=== PATIENT | male | born 1950 | race African-American/Black ===

== ENCOUNTER 2017-06-13 11:06 | Emergency (ER) | payer OTHER ==
[2017-06-13] MEDS ORDERED: oxyCODONE HCL 5 MG TABLET PO ONE (11:39)
--- NOTE | 2017-06-13 11:46 | PDOC ---
History of Present Illness - History of Present Illness Initial Comments: 06/13/17 12:24 The patient is a 67 year old male with a significant PMH of colon cancer, GI bleed, sickle cell trait, anemia, heart murmur, HLD, s/p RLE angiogram with SFA stent placement on 05/29/2017, sent in by Dr. Fernandez to the emergency department for evaluation of gangrenous right fourth toe. The patient states the fourth toe pain and necrosis is worsening over the past few weeks and is making it difficult for him to sleep at night. 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 The patient has no other complaints at this time. The patient denies chest pain, shortness of breath, headache and dizziness. Denies fever, chills, nausea, vomit, diarrhea and constipation. Denies dysuria, frequency, urgency and hematuria. Allergies: NKA Past surgical history: Left above the knee amputation. Social history: Current every day smoker (4 cigarettes per day). Alcohol use. No reported drug use. PCP: Dr. Fernandez Vascular surgeon: Dr. Guzman <Shelia Christianson - Last Filed: 06/13/17 13:23> - General History Source: Patient, Old Records Exam Limitations: No Limitations <Armand Schaefer - Last Filed: 06/13/17 18:35> - General Chief Complaint: Wound Stated Complaint: RT TOE WOUND (PCP SENT) Time Seen by Provider: 06/13/17 11:25 Past History <Shelia Christianson - Last Filed: 06/13/17 13:23> - Past Medical History Anemia: No Asthma: No Cancer: Yes (COLON WITH RESECTION AND CHEMO) Cardiac Disorders: Yes (BORN WITH HEART MURMUR) CVA: No COPD: No CHF: No Dementia: No Diabetes: No GI Disorders: No Disorders: No HTN: No Hypercholesterolemia: No Liver Disease: No Seizures: No Thyroid Disease: No - Surgical History Abdominal Surgery: Yes (COLON RESECTION) Orthopedic Surgery: (AMPUTATION (LEFT AKA)) - Suicide/Smoking/Psychosocial Hx Smoking Status: Yes Smoking History: Current some day smoker Have you smoked in the past 12 months: Yes Number of Cigarettes Smoked Daily: 3 Information on smoking cessation initiated: Yes 'Breaking Loose' booklet given: 05/23/17 Hx Alcohol Use: No Drug/Substance Use Hx: No Substance Use Type: None Hx Substance Use Treatment: No <Armand Schaefer - Last Filed: 06/13/17 18:35> - Past Medical History Allergies/Adverse Reactions: Allergies Allergy/AdvReac Type Severity Reaction Status Date / Time No Known Allergies Allergy Verified 06/13/17 11:10 Home Medications: Ambulatory Orders Albuterol Sulfate [Proair Hfa -] 1 puff IH Q4H PRN 04/25/15 Folic Acid 1 mg PO DAILY 05/23/17 Tramadol HCl 50 mg PO PRN PRN 05/23/17 Clopidogrel Bisulfate [Plavix] 75 mg PO DAILY #30 tablet 05/29/17 Oxycodone HCl/Acetaminophen [Percocet 5-325 mg Tablet] 1 tab PO Q6H PRN #20 tablet MDD 4 06/13/17 Review of Systems - Review of Systems Able to Perform ROS?: Yes Comments:: 06/13/17 12:08 GENERAL/CONSTITUTIONAL: No fever or chills. No weakness. HEAD, EYES, EARS, NOSE AND THROAT: No change in vision. No ear pain or discharge. No sore throat. CARDIOVASCULAR: No chest pain or shortness of breath. RESPIRATORY: No cough, wheezing, or hemoptysis. GASTROINTESTINAL: No nausea, vomiting, diarrhea or constipation. GENITOURINARY: No dysuria, frequency, or change in urination. MUSCULOSKELETAL: (+) Pain in the right 4th toe. No neck or back pain. SKIN: No rash NEUROLOGIC: No headache, vertigo, loss of consciousness, or change in strength/ sensation. ENDOCRINE: No increased thirst. No abnormal weight change. HEMATOLOGIC/LYMPHATIC: No anemia, easy bleeding, or history of blood clots. ALLERGIC/IMMUNOLOGIC: No hives or skin allergy. <Shelia Christianson - Last Filed: 06/13/17 13:23> *Physical Exam - Vital Signs Last Vital Signs Temp Pulse Resp BP Pulse Ox 97.4 F L 74 20 124/79 99 06/13/17 11:10 06/13/17 11:10 06/13/17 11:10 06/13/17 11:10 06/13/17 11:10 - Physical Exam Comments: 06/13/17 12:03 GENERAL: Awake, alert, and fully oriented, in no acute distress HEAD: No signs of trauma EYES: PERRLA, EOMI, sclera anicteric, conjunctiva clear ENT: Auricles normal inspection, hearing grossly normal, nares patent, oropharynx clear without exudates. Moist mucosa NECK: Normal ROM, supple, no lymphadenopathy, JVD, or masses LUNGS: Breath sounds equal, clear to auscultation bilaterally. No wheezes, and no crackles HEART: Regular rate and rhythm, normal S1 and S2, no murmurs, rubs or gallops ABDOMEN: Soft, nontender, normoactive bowel sounds. No guarding, no rebound. No masses EXTREMITIES: (+) Left AKA. (+) Right 4th toe necrotic. (+) Sensation intact in RLE. (+) Barely palpation DP pulse. Normal range of motion, no edema. No clubbing or cyanosis. No cords, erythema, or tenderness NEUROLOGICAL: Cranial nerves II through XII grossly intact. Normal speech. SKIN: Warm, Dry, normal turgor, no rashes or lesions noted. <Shelia Christianson - Last Filed: 06/13/17 13:23> - Vital Signs Last Vital Signs Temp Pulse Resp BP Pulse Ox 97.4 F L 74 20 124/79 99 06/13/17 11:10 06/13/17 11:10 06/13/17 11:10 06/13/17 11:10 06/13/17 11:10 <Armand Schaefer - Last Filed: 06/13/17 18:35> Heart Score/ECG Review #1 ECG reviewed & interpreted by me at: 12:50 06/13/17 16:05 NSR 68, LVH, Q wave V1-V2, TWI I, avL, V5-V6, j point elevation V4, no std/richard, QTC 435 msec <Armand Schaefer - Last Filed: 06/13/17 18:35> ED Treatment Course - LABORATORY CBC & Chemistry Diagram: 06/13/17 12:15 06/13/17 12:15 <Shelia Christianson - Last Filed: 06/13/17 13:23> - LABORATORY CBC & Chemistry Diagram: 06/13/17 12:15 06/13/17 12:15 <Armand Schaefer - Last Filed: 06/13/17 18:35> Medical Decision Making - Medical Decision Making 06/13/17 13:[address] Guzman. <Shelia Christianson - Last Filed: 06/13/17 13:23> - Medical Decision Making 06/13/17 11:51 A portion of this note was documented by scribe services under my direction. I have reviewed the details of the note, within reason, and agree with the documentation with the following case summary and management plan written by me. Patient treated in the ED. Nursing notes are reviewed and incorporated into the medical decision-making. Vital signs reviewed. Peripheral IV access obtained by the nurse, laboratory studies are drawn and sent, reviewed and interpreted by myself. Vital Signs Temp Pulse Resp BP Pulse Ox 97.4 F L 74 20 124/79 99 06/13/17 11:10 06/13/17 11:10 06/13/17 11:10 06/13/17 11:10 06/13/17 11:10 67 year old male with past medical history of colon cancer, GI bleed, hypercholesterolemia, sickle trait, anemia, status post right lower extremity angiogram with SFA stent placement on 05/29/2017 sent in by primary care physician Dr. Fernandez for gangrenous right fourth toe. As of note, in April 22, the patient has had a complicated course with the left lower extremity that resulted in a left AKA. This time, patient has started developing several weeks of pain in the right fourth toe. Noted that he was having increasing pain and necrosis of the right fourth toe. However, the pain is worsening and the patient of visit the PMD. Patient's primary care physician has sent the patient here to the ED. Patient's vascular surgeon is Dr. Gilbert Gzuman. Consult Dr. Guzman. We'll need to rule out vasculitis. There is evidence of necrosis right or toe. We'll obtain blood cultures and labs and urinalysis and a right foot x-ray and admit the patient to the hospital. 06/13/17 16:16 CBC, BMP 06/13/17 12:15 06/13/17 12:15 CMP Sodium 141 mmol/L (136-145) 06/13/17 12:15 Potassium 5.0 mmol/L (3.5-5.1) 06/13/17 12:15 Chloride 110 mmol/L (98-107) H 06/13/17 12:15 Carbon Dioxide 25 mmol/L (21-32) 06/13/17 12:15 Anion Gap 6 (8-16) L 06/13/17 12:15 BUN 14 mg/dL (7-18) D 06/13/17 12:15 Creatinine 0.9 mg/dL (0.7-1.3) D 06/13/17 12:15 Creat Clearance w eGFR > 60 (>60) 06/13/17 12:15 Random Glucose 93 mg/dL (74-106) D 06/13/17 12:15 Calcium 9.0 mg/dL (8.5-10.1) 06/13/17 12:15 Phosphorus 3.4 mg/dL (2.5-4.9) 06/13/17 12:15 Magnesium 2.0 mg/dL (1.8-2.4) D 06/13/17 12:15 Total Bilirubin 0.5 mg/dL (0.2-1.0) D 06/13/17 12:15 AST 38 U/L (15-37) H D 06/13/17 12:15 ALT 21 U/L (12-78) 06/13/17 12:15 Alkaline Phosphatase 109 U/L (45-117) 06/13/17 12:15 C-Reactive Protein 0.4 MG/DL (0.00-0.3) H 06/13/17 12:15 Total Protein 7.5 g/dl (6.4-8.2) 06/13/17 12:15 Albumin 3.9 g/dl (3.4-5.0) 06/13/17 12:15 06/13/17 18:30 CT scan reviewed. Demonstrates findings with difficult to assess for patent vessels. Case was discussed with Dr. Gilbert Guzman. Patient was seen by Dr. Guzman. He had performed dopplers and noted flow to the DP. Patient otherwise with no acute infection at this time. Patient prefers to follow up as an outpatient, to which Dr. Guzman is agreeable with the plan. Case was discussed with DR. Fernandez, who agrees to the plan with Dr. Guzman. I discussed the physical exam findings, ancillary test results and final diagnoses with the patient. I answered all of the patient's questions. The patient was satisfied with the care received and felt comfortable with the discharge plan and treatment plan. The patient will call their primary care physician within 24 hours to arrange follow-up and will return to the Emergency Department with any new, persistant or worsening symptoms. <Armand Schaefer - Last Filed: 06/13/17 18:35> *DC/Admit/Observation/Transfer - Attestations Scribe Attestion: 06/13/17 12:07 Documentation prepared by Shelia Christianson, acting as medical sales consultant for Armand Schaefer MD. <Shelia Christianson - Last Filed: 06/13/17 13:23> <Armand Schaefer - Last Filed: 06/13/17 18:35> Diagnosis at time of Disposition: Foot pain Qualifiers: Laterality: right Qualified Code(s): M79.671 - Pain in right foot - Discharge Dispostion Disposition: HOME Condition at time of disposition: Stable - Prescriptions Prescriptions: Oxycodone HCl/Acetaminophen [Percocet 5-325 mg Tablet] 1 tab PO Q6H PRN #20 tablet MDD 4 PRN Reason: Severe Pain - Referrals Referrals: Ishan Fernandez [Primary Care Provider] - Gilbert Guzman MD [Staff Physician] - - Patient Instructions Printed Discharge Instructions: DI for Foot Pain Additional Instructions: Please take a tablet of percocet every 6 hours as needed for pain. Follow up with Dr. Hunt on Friday. - Post Discharge Activity
[2017-06-13] MEDS ORDERED: oxyCODONE HCL 5 MG TABLET ONE (12:19)
[2017-06-13 12:31] LABS: BASO % 0.8 % (0-2.0); EOS % 3.6 % (0-4.5); HEMATOCRIT 30.1 % (35.4-49); LYMPH % 13.3 % (8-40); MCH 33.9 pg (25.7-33.7); MCHC 33.4 g/dl (32.0-35.9); MEAN CELL VOLUME 101.7 fl (80-96); MEAN PLT VOLUME 8.4 fl (7.5-11.1); MONO % 5.2 % (3.8-10.2); NEUT % 77.1 % (42.8-82.8); PLATELET COUNT 292 K/MM3 (134-434); RBC 2.96 M/mm3 (4.00-5.60); RDW 15.6 % (11.9-15.9); WHITE BLOOD COUNT 6.3 K/mm3 (4.0-10.0)
[2017-06-13 13:03] LABS: ALBUMIN 3.9 g/dl (3.4-5.0); ALK PHOS 109 U/L (45-117); ANION GAP 6 (8-16); BILIRUBIN,TOTAL 0.5 mg/dL (0.2-1.0); BLOOD UREA NITROGEN 14 mg/dL (7-18); CHLORIDE 110 mmol/L (98-107); CO2 25 mmol/L (21-32); CREATININE 0.9 mg/dL (0.7-1.3); GLUCOSE,RANDOM 93 mg/dL (74-106); PHOSPHOROUS 3.4 mg/dL (2.5-4.9); SGPT/ALT 21 U/L (12-78); SODIUM 141 mmol/L (136-145); TOT PROT 7.5 g/dl (6.4-8.2)
[2017-06-13 13:08] LABS: INR 0.93 (0.82-1.09); PROTHROMBIN TIME (PATIENT) 10.5 SEC (9.98-11.88)
[2017-06-13 13:11] LABS: ACTIVATED PTT 33.7 SECONDS (26.9-34.4)
[2017-06-13] MEDS ORDERED: morphine CARPU-JECT 4 MG/1 ML DISP.SYRIN IVPUSH ONE (13:21)
[2017-06-13] MEDS ORDERED: MORPHINE SULFATE 10 MG/1 ML *VIAL ONE (13:24)
[2017-06-13 13:45] LABS: SGOT/AST 38 U/L (15-37)
[2017-06-13 14:19] LABS: ERYTHROCYTE SEDIMENTATION RATE > 140 mm/hr (0-20)
--- NOTE | 2017-06-13 18:32 | PN ---
Progress Note (short form) - Note Progress Note: Vascular surgery Pt seen and examined. Complains of right 4th and 5th toe pain. Pt has good dopplerable DP and PT pulses. CTA reviewed. STents look open. Will come to office on for US Pain meds Gilbert lizama DO
[2017-06-13 18:55] VITALS: BP 141/93; PULSE 70; TEMP 97.8
--- NOTE | 2017-06-17 11:45 | EKG ---
Test Reason : Blood Pressure : / mmHG Vent. Rate : 068 BPM Atrial Rate : 068 BPM P-R Int : 146 ms QRS Dur : 086 ms QT Int : 410 ms P-R-T Axes : 040 -10 -50 degrees QTc Int : 435 ms SINUS RHYTHM WITH PREMATURE ATRIAL COMPLEXES MINIMAL VOLTAGE CRITERIA FOR LVH, MAY BE NORMAL VARIANT SEPTAL INFARCT (CITED ON OR BEFORE 20-APR-2015) T WAVE ABNORMALITY, CONSIDER LATERAL ISCHEMIA ABNORMAL ECG WHEN COMPARED WITH ECG OF 20-APR-2015 17:31, QUESTIONABLE CHANGE IN INITIAL FORCES OF ANTEROSEPTAL LEADS NONSPECIFIC T WAVE ABNORMALITY NOW EVIDENT IN INFERIOR LEADS T WAVE INVERSION NOW EVIDENT IN LATERAL LEADS Confirmed by MD Joe, Frederick ([id number]) on 06/17/2017 11:44:21 AM Referred By: Confirmed By:Frederick Diaz MD
== END 2017-06-13 18:57 | disposition home or self-care (01) ==
LOC: JER 11:06
PROC: 3E033NZ Introduction of Analgesics, Hypnotics, Sedatives into Peripheral Vein, Percutaneous Approach (ICD-10-PCS; principal; 2017-06-13)
DX: M79.671 Pain in right foot (principal); D57.1 Sickle-cell disease without crisis; R01.1 Cardiac murmur, unspecified
CPT/HCPCS: 36415; 71045-TC-FY; 73630-TC-RT-FY; 75635-TC; 80053; 83735; 84100; 85025; 85610; 85651; 85730; 86140; 87040; 93005; 93010; 96374; 99284-25

== ENCOUNTER 2017-07-17 14:04 | Day surgery (SDC) | payer OTHER ==
[2017-07-16 11:14] VITALS: BMI 18.3
[2017-07-17] MEDS ORDERED: MIDAZOLAM HCL 2 MG/2 ML SINGLE DOSE VIAL ONE (16:48)
[2017-07-17] MEDS ORDERED: PROPOFOL 20 ML ONE (16:48)
--- NOTE | 2017-07-17 16:48 | HP ---
Admitting History and Physical - Admission Chief Complaint: right 4th toe gangrene . Here for amputation today Limitations to Obtaining History: No Limitations - Past Medical History Cardiovascular: Yes: Hyperlipdemia. No: AFIB, Aneurysm, Aortic Insufficiency, Aortic Stenosis, CAD, CHF, Deep Vein Thrombosis, HTN, [place], Mitral Insufficiency, Mitral Stenosis, Murmur, Pulmonary Hypertension, Other Gastrointestinal: Yes: Cancer (colon), GI Bleed. No: Ascites, Constipation, Crohn's Disease, Diverticulitis, Diverticulosis, Esophageal Varices, Gastritis, GERD, Hemorrhoids, Hiatal Hernia, Inflamatory Bowel Disease, Irritable Bowel Disease, Pancreatitis, Peptic Ulcer Disease, Ulcerative Colitis, Other Heme/Onc: Yes: Cancer (colon), Sickle Cell Trait. 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 [Santyl] 1 applic TP DAILY #1 oint...g. 06/18/17 Family Disease History - Family Disease History Family Disease History: Other: Father (Sickle Cell Trait) Review of Systems - Review of Systems Constitutional: reports: No Symptoms Eyes: reports: No Symptoms HENT: reports: No Symptoms Neck: reports: No Symptoms Cardiovascular: reports: No Symptoms Respiratory: reports: No Symptoms Gastrointestinal: reports: No Symptoms Genitourinary: reports: No Symptoms Breasts: reports: No Symptoms Reported Musculoskeletal: reports: No Symptoms Integumentary: reports: No Symptoms Neurological: reports: No Symptoms Endocrine: reports: No Symptoms Hematology/Lymphatic: reports: No Symptoms Psychiatric: reports: No Symptoms Physical Examination Vital Signs: Vital Signs Temperature 97.6 F 07/17/17 15:01 Pulse Rate 72 07/17/17 15:01 Respiratory Rate 16 07/17/17 15:01 Blood Pressure 113/65 07/17/17 15:01 O2 Sat by Pulse Oximetry (%) 94 L 07/17/17 15:01 Constitutional: Yes: Well Nourished, No Distress, Calm Eyes: Yes: WNL, Conjunctiva Clear, EOM Intact HENT: Yes: WNL, Atraumatic, Normocephalic Neck: Yes: WNL, Supple, Trachea Midline Cardiovascular: Yes: WNL, Regular Rate and Rhythm Respiratory: Yes: WNL, Regular, CTA Bilaterally Gastrointestinal: Yes: WNL, Normal Bowel Sounds Musculoskeletal: Yes: WNL Extremities: Yes: WNL, Other (gangrene right 4th toe) Edema: No Peripheral Pulses WNL: Yes Integumentary: Yes: WNL Neurological: Yes: WNL, Alert, Oriented ...Motor Strength: WNL Psychiatric: Yes: WNL Problem List - Problems (1) Foot pain Code(s): M79.673 - PAIN IN UNSPECIFIED FOOT (2) Gangrene of toe Code(s): I96 - GANGRENE, NOT ELSEWHERE CLASSIFIED (3) Peripheral arterial disease Code(s): I73.9 - PERIPHERAL VASCULAR DISEASE, UNSPECIFIED (4) S/P AKA (above knee amputation) unilateral Code(s): Z89.619 - ACQUIRED ABSENCE OF UNSPECIFIED LEG ABOVE KNEE (5) Smoker Code(s): F17.200 - NICOTINE DEPENDENCE, UNSPECIFIED, UNCOMPLICATED Assessment/Plan Gangrene right 4th toe 1. For amputation today
[2017-07-17] MEDS ORDERED: ceFAZolin SODIUM 1 GM VIAL IVPB ONE (17:10)
[2017-07-17] MEDS ORDERED: LIDOCAINE HCL 1%, 10 MG/ML (20ML VIAL) ONE (17:11)
[2017-07-17] MEDS ORDERED: ceFAZolin SODIUM 1 GM VIAL ONE (17:14)
[2017-07-17] MEDS ORDERED: LIDOCAINE HCL 1%, 10 MG/ML (50 mL VIAL) IJ ONE (17:15)
[2017-07-17] MEDS ORDERED: BACITRACIN 15 GM TUBE TOPICAL OINTMENT ONE (17:36)
--- NOTE | 2017-07-17 17:45 | OP ---
Operative Note - Note: Operative Date: 07/17/17 Pre-Operative Diagnosis: right 4th toe gangrene Operation: right 4th toe partial amputation Post-Operative Diagnosis: Same as Pre-op Anesthesia: Fractional Estimated Blood Loss (mls): 25 Operative Report Dictated: Yes
[2017-07-17] MEDS ORDERED: PROMETHAZINE HCL 25 MG/1 ML VIAL IVPB PRN (17:49)
[2017-07-17] MEDS ORDERED: ONDANSETRON 4 MG/2 ML VIAL IVPUSH PRN (17:49)
[2017-07-17] MEDS ORDERED: SODIUM CHLORIDE 1,000 ML IV SCH (18:00)
[2017-07-17] MEDS ORDERED: LABETALOL HCL 5 MG/1 ML (100MG/20 ML VIAL) ONE (18:23)
[2017-07-17] MEDS ORDERED: LABETALOL HCL 5 MG/1 ML (100MG/20 ML VIAL) IVPUSH ONE (18:30)
[2017-07-17 18:40] VITALS: TEMP 97.5
[2017-07-17 20:54] VITALS: BP 147/80; PULSE 70
--- NOTE | 2017-07-18 01:52 | OP ---
DATE OF OPERATION: 07/17/2017 PREOPERATIVE DIAGNOSIS: Right fourth toe gangrene. POSTOPERATIVE DIAGNOSIS: Right fourth toe gangrene. PROCEDURE: Right fourth toe partial amputation. SURGEON: Gilbert Guaman DO ANESTHESIA: Fractional. BLOOD LOSS: 20 mL. DESCRIPTION OF PROCEDURE: The patient is a 67-year-old male with right fourth toe gangrene for about 3 months now. He was revascularized by having a stent placed 2 months ago. He has good Dopplerable DP and PT pulses. It was thought that he would need a partial toe amputation. He came in to Ambulatory Surgery today. Patient was consented for the procedure, understanding all risks, benefits, alternatives, and was then taken to the operating room. Once in the operating room, he was placed on the operating table in the supine manner. The right foot and leg were prepped and draped in the sterile surgical manner. We then injected 15 mL of lidocaine 1% around the fourth toe to create a block. We then went ahead and used a number 15-blade and removed the gangrenous portion of the toe and we were able to remove the tendons attached to the distal portion of the toe as well. We then went ahead and used a rongeur and excavated the toe and took out all of the bone and the bone was sent to pathology. Once the bone was taken out, the rest of the toe was viable and we were able to close the wound using 4-0 silk in a simple manner and 3 simple stitches were placed. The wound was then well irrigated. Bacitracin was placed. Xeroform, 4 x 4's, and Kerlix were placed. The patient tolerated the procedure well with no complications. Patient was transferred to the PACU in stable condition. GILBERT GUAMAN DO SELF PAY COLLECTOR/[id number]
--- NOTE | 2017-07-21 14:05 | PATH ---
Surgical Pathology Report Patient Name: MISSY FERNANDEZ [facility]. Rec. #: [id number] /Age/Gender: 1950 (Age: 67) / M Account: [id number] Location: [facility] SURGICAL Taken: 07/18/2017 Received: 07/18/2017 Reported: 07/21/2017 Physicians: Gilbert Guzman Specimen(s) Received RIGHT 4TH TOE/BONE Clinical History Right fourth toe gangrene Final Diagnosis BONE AND SOFT TISSUE, RIGHT FOURTH TOE, PARTIAL AMPUTATION: BONE WITH REACTIVE CHANGES, AND SOFT TISSUE WITH GANGRENOUS NECROSIS. Electronically Signed Ishan Burris M.D. Gross Description Received in formalin labeled "right fourth toe/bone" is an irregular white-mahoney focally gangrenous portion of soft tissue measuring 2 x 1.5 x 1 cm. Also received in same container are multiple white-mahoney fragments of bone measuring 1.5 x 1 x 0.4 cm in aggregate. Tugboat Captain sections are submitted in 2 cassettes as follows: 1-gangrenous tissue; 2-bone fragments after decalcification. PRIMITIVO/07/18/2017 marshall/07/18/2017
== END 2017-07-17 19:45 | disposition home or self-care (01) ==
LOC: JASU-SURG 14:04
PROVIDERS: ATTEND Surgery Vascular Surgery
PROC: 0Y6V0Z0 Detachment at Right 4th Toe, Complete, Open Approach (ICD-10-PCS; principal; 2017-07-17 16:30)
DX: I96 Gangrene, not elsewhere classified (principal)
CPT/HCPCS: 88304-TC; 88311-TC; 94760

== ENCOUNTER 2017-07-31 07:37 | Day surgery (SDC) | payer OTHER ==
[2017-07-30 09:30] VITALS: BMI 19.1
--- NOTE | 2017-07-31 08:56 | HP ---
Admitting History and Physical - Admission Chief Complaint: right 4th toe gangrene. Here for amputation today. Limitations to Obtaining History: No Limitations - Past Medical History Cardiovascular: Yes: Hyperlipdemia. No: AFIB, Aneurysm, Aortic Insufficiency, Aortic Stenosis, CAD, CHF, Deep Vein Thrombosis, HTN, [place], Mitral Insufficiency, Mitral Stenosis, Murmur, Pulmonary Hypertension, Other Gastrointestinal: Yes: Cancer (colon), GI Bleed. No: Ascites, Constipation, Crohn's Disease, Diverticulitis, Diverticulosis, Esophageal Varices, Gastritis, GERD, Hemorrhoids, Hiatal Hernia, Inflamatory Bowel Disease, Irritable Bowel Disease, Pancreatitis, Peptic Ulcer Disease, Ulcerative Colitis, Other Heme/Onc: Yes: Cancer (colon), Sickle Cell Trait. 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 [Santyl] 1 applic TP DAILY #1 oint...g. 06/18/17 Albuterol 0.083% Nebulizer Ni [Ventolin 0.083% Nebulizer Soln -] 1 amp NEB PRN 07/30/17 Family Disease History - Family Disease History Family Disease History: Other: Father (Sickle Cell Trait) Review of Systems - Review of Systems Constitutional: reports: No Symptoms Eyes: reports: No Symptoms HENT: reports: No Symptoms Neck: reports: No Symptoms Cardiovascular: reports: No Symptoms Respiratory: reports: No Symptoms Gastrointestinal: reports: No Symptoms Genitourinary: reports: No Symptoms Breasts: reports: No Symptoms Reported Musculoskeletal: reports: No Symptoms Physical Examination Vital Signs: Vital Signs Temperature 98.2 F 07/31/17 08:21 Pulse Rate 74 07/31/17 08:21 Respiratory Rate 18 07/31/17 08:21 Blood Pressure 125/66 07/31/17 08:21 O2 Sat by Pulse Oximetry (%) 100 07/31/17 08:18 Constitutional: Yes: Well Nourished, No Distress, Calm Eyes: Yes: WNL, Conjunctiva Clear, EOM Intact HENT: Yes: WNL, Atraumatic, Normocephalic Neck: Yes: WNL, Supple, Trachea Midline Cardiovascular: Yes: WNL, Regular Rate and Rhythm Respiratory: Yes: WNL, Regular, CTA Bilaterally Gastrointestinal: Yes: WNL, Normal Bowel Sounds Musculoskeletal: Yes: WNL Extremities: Yes: WNL, Other (right 4th toe gangrene) Edema: No Peripheral Pulses WNL: Yes Integumentary: Yes: WNL Neurological: Yes: WNL, Alert, Oriented ...Motor Strength: WNL Psychiatric: Yes: WNL Problem List - Problems (1) Gangrene of toe Code(s): I96 - GANGRENE, NOT ELSEWHERE CLASSIFIED (2) S/P AKA (above knee amputation) unilateral Code(s): Z89.619 - ACQUIRED ABSENCE OF UNSPECIFIED LEG ABOVE KNEE Assessment/Plan right 4th toe gangrene 1. For amputation of toe today
[2017-07-31] MEDS ORDERED: PROMETHAZINE HCL 25 MG/1 ML VIAL IVPUSH PRN (09:08)
[2017-07-31] MEDS ORDERED: oxyCODONE HCL 5 MG TABLET PO PRN (09:08)
[2017-07-31] MEDS ORDERED: ONDANSETRON 4 MG/2 ML VIAL IVPUSH PRN (09:08)
[2017-07-31] MEDS ORDERED: LACTATED RINGERS SOLUTION 1,000 ML IV SCH (09:15)
[2017-07-31] MEDS ORDERED: MIDAZOLAM HCL 2 MG/2 ML SINGLE DOSE VIAL ONE ×2 (09:19)
[2017-07-31] MEDS ORDERED: PROPOFOL 20 ML ONE (09:31)
[2017-07-31] MEDS ORDERED: LIDOCAINE HCL 1%, 10 MG/ML (20ML VIAL) INF ONE ×2 (09:32)
[2017-07-31] MEDS ORDERED: BACITRACIN 15 GM TUBE TOPICAL OINTMENT ONE (09:55)
--- NOTE | 2017-07-31 10:09 | OP ---
Operative Note - Note: Operative Date: 07/31/17 Pre-Operative Diagnosis: right 4th toe gangrene Operation: right 4th toe amputation Post-Operative Diagnosis: Same as Pre-op Surgeon: Gilbert Guzman Anesthesia: Fractional Estimated Blood Loss (mls): 5 Operative Report Dictated: Yes
--- NOTE | 2017-07-31 10:45 | OP ---
DATE OF OPERATION: 07/31/2017 PREOPERATIVE DIAGNOSIS: Right 4th toe gangrene. POSTOPERATIVE DIAGNOSIS: Right 4th toe gangrene. PROCEDURE: Right 4th toe amputation. SURGEON: Gilbert Guaman DO ANESTHESIA: Fractional. BLOOD LOSS: 5 mL The patient is a 67-year-old male with right 4th toe gangrene. He came in to Ambulatory Surgery for an amputation. Patient was consented for the procedure, understanding all risks, benefits, and alternatives and was then taken to the operating room. Once in the operating room, he was laid on the operating table in supine manner, and the area of the right leg and foot was prepped and draped in a sterile surgical manner. We then went ahead and injected 15 mL of lidocaine 1% around the 4th toe. We then went ahead and used a number 15 blade and made an elliptical incision around the toe. Bovie electrocautery used to control hemostasis. We then used a bone cutter, and the toe was sent to Pathology. We then used a rongeur and took the remaining part of the toe all the way back down to the metatarsal head. The wound was then well irrigated. We then used 3-0 silk, and 4 simple stitches were placed to approximate the wound. Bacitracin was placed. Xeroform was placed, 4 x 4's, Kerlix, and Alvaro bandage was placed. The patient tolerated the procedure with no complication. Patient transferred to the PACU in stable condition. GILBERT GUAMAN DO SALESPERSON [employer]/[id number]
[2017-07-31 11:07] VITALS: PULSE 73
[2017-07-31 11:12] VITALS: BP 132/76; TEMP 97.3
--- NOTE | 2017-08-04 14:46 | PATH ---
Surgical Pathology Report Patient Name: MISSY FERNANDEZ [facility]. Rec. #: [id number] /Age/Gender: 1950 (Age: 67) / M Account: [id number] Location: U SURGICAL Taken: 07/31/2017 Received: 07/31/2017 Reported: 08/04/2017 Physicians: Gilbert Guzman Specimen(s) Received AMPUTATION OF RIGHT 4TH TOE Clinical History Gangrene of right fourth toe Final Diagnosis RIGHT FOURTH TOE, AMPUTATION: ULCERATION WITH GANGRENOUS NECROSIS AND ACUTE OSTEOMYELITIS. Comment: Due to the fragmented nature of the specimen, a definite margin cannot be determined. Electronically Signed Ishan Burris M.D. Gross Description Received in formalin labelled "amputation right toe fourth" is an approximately 3 x 1.5 x 1.2 cm aggregate of portions of skin and mahoney-freedman tissue, along with fragments of possible bony material. The largest piece measures 1.5 cm in greatest dimension. This piece shows an area of apparent ulceration. Sections from the apparent margin are submitted 1. Sections from the area of ulceration are submitted in cassette 2. Possible bony tissue fragments are submitted in cassette 3 for light decalcification. [facility]/08/01/2017 [facility]/08/01/2017
== END 2017-07-31 12:00 | disposition home or self-care (01) ==
LOC: JASU-SURG 07:37
PROVIDERS: ATTEND Surgery Vascular Surgery
PROC: 0Y6V0Z3 Detachment at Right 4th Toe, Low, Open Approach (ICD-10-PCS; principal; 2017-07-31 09:00)
DX: I73.9 Peripheral vascular disease, unspecified (principal); M86.171 Other acute osteomyelitis, right ankle and foot
CPT/HCPCS: 88305-TC; 88311-TC

== ENCOUNTER 2017-08-26 10:33 | Inpatient (IN) | payer OTHER ==
--- NOTE | 2017-08-26 11:06 | PDOC ---
*Physical Exam - Vital Signs Last Vital Signs Temp Pulse Resp BP Pulse Ox 98.6 F 90 18 112/58 100 08/26/17 10:38 08/26/17 10:38 08/26/17 10:38 08/26/17 10:38 08/26/17 10:38 Medical Decision Making - Medical Decision Making 08/26/17 11:05 Pt seen by the Advanced Practice Provider under my direct supervision Ancillary studies reviewed I agree with plan as outlined by the Advanced Practice Provider ANIA Jones
--- NOTE | 2017-08-26 11:08 | PDOC ---
History of Present Illness - General Chief Complaint: Wound Stated Complaint: WOUND Time Seen by Provider: 08/26/17 10:46 History Source: Patient Exam Limitations: No Limitations - History of Present Illness Initial Comments: 08/26/17 13:45 Patient is a 67-year-old male past medical history of vascular disease, who presents emergency department today from wound care. Patient states that the base of his right fourth toe is infected and he has pain to the surrounding foot. He states he has had pain to the foot for three weeks. The fourth toe is amputated. Denies fevers, chills, shortness of breath, difficulty breathing, chest pain, palpitations, nausea, vomiting, diarrhea, frequency, urgency and hematuria. Past History - Travel Traveled outside of the country in the last 30 days: No Close contact w/someone who was outside of country & ill: No - Past Medical History Allergies/Adverse Reactions: Allergies Allergy/AdvReac Type Severity Reaction Status Date / Time No Known Allergies Allergy Verified 08/26/17 10:37 Home Medications: Ambulatory Orders Albuterol Sulfate [Proair Hfa -] 1 puff IH Q4H PRN 04/25/15 Folic Acid 1 mg PO DAILY 05/23/17 Tramadol HCl 50 mg PO PRN PRN 05/23/17 Clopidogrel Bisulfate [Plavix] 75 mg PO DAILY #30 tablet 05/29/17 Collagenase Clostridium Hist. [Santyl] 1 applic TP DAILY #1 oint...g. 06/18/17 Albuterol 0.083% Nebulizer Ni [Ventolin 0.083% Nebulizer Soln -] 1 amp NEB PRN 07/30/17 Becaplermin [Regranex] 15 gm TP DAILY #1 gel..gram. 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) CVA: No COPD: No CHF: No Dementia: No Diabetes: No GI Disorders: No Disorders: No HTN: No Hypercholesterolemia: No Liver Disease: No Seizures: No Thyroid Disease: No Other medical history: PVD - Surgical History Abdominal Surgery: Yes (COLON RESECTION) Orthopedic Surgery: (AMPUTATION (LEFT AKA)) - Suicide/Smoking/Psychosocial Hx Smoking Status: Yes Smoking History: Current some day smoker Have you smoked in the past 12 months: Yes Number of Cigarettes Smoked Daily: 3 Information on smoking cessation initiated: Yes 'Breaking Loose' booklet given: 08/26/17 Hx Alcohol Use: No Drug/Substance Use Hx: No Substance Use Type: None Hx Substance Use Treatment: No Review of Systems - Review of Systems Able to Perform ROS?: Yes Comments:: 08/26/17 16:49 CONSTITUTIONAL: Absent: fever, chills, diaphoresis, generalized weakness, malaise, loss of appetite HEENT: Absent: rhinorrhea, nasal congestion, throat pain, throat swelling, difficulty swallowing, mouth swelling, ear pain, eye pain, visual Changes CARDIOVASCULAR: Absent: chest pain, loss of consciousness, palpitations, irregular heart rate, peripheral edema RESPIRATORY: Absent: cough, shortness of breath, dyspnea with exertion, orthopnea, wheezing, stridor, hemoptysis GASTROINTESTINAL: Absent: abdominal pain, abdominal distension, nausea, vomiting, diarrhea, constipation, melena, hematochezia GENITOURINARY: Absent: dysuria, frequency, urgency, hesitancy, hematuria, flank pain, genital pain MUSCULOSKELETAL: Absent: myalgia, arthralgia, joint swelling SKIN: Present: Rash to R foot with infected toe Absent: rash, itching, pallor HEMATOLOGIC/IMMUNOLOGIC: Absent: easy bleeding, easy bruising, lymphadenopathy, frequent infections ENDOCRINE: Absent: unexplained weight gain, unexplained weight loss, heat intolerance, cold intolerance NEUROLOGIC: Absent: headache, focal weakness or paresthesias, dizziness, unsteady gait, seizure, mental status changes, bladder or bowel incontinence PSYCHIATRIC: Absent: anxiety, depression, suicidal or homicidal ideation, hallucinations. Is the patient limited British proficient: No *Physical Exam - Vital Signs Last Vital Signs Temp Pulse Resp BP Pulse Ox 98.6 F 90 18 112/58 100 08/26/17 10:38 08/26/17 10:38 08/26/17 10:38 08/26/17 10:38 08/26/17 10:38 - Physical Exam Comments: 08/26/17 16:49 GENERAL: Well developed, well nourished. Awake and alert. No acute distress. HEENT: Normocephalic, atraumatic. PERRLA, EOMI. No conjunctival pallor. Sclera are non- icteric. Moist mucous membranes. Oropharynx is clear. NECK: Supple. Full ROM. No JVD. Carotid pulses 2+ and symmetric, without bruits. No thyromegaly. No lymphadenopathy. CARDIOVASCULAR: Regular rate and rhythm. No murmurs, rubs, or gallops. Distal pulses are 2+ and symmetric. PULMONARY: No evidence of respiratory distress. Lungs clear to auscultation bilaterally. No wheezing, rales or rhonchi. ABDOMINAL: Soft. Non-tender. Non-distended. No rebound or guarding. No organomegaly. Normoactive bowel sounds. MUSCULOSKELETAL Normal range of motion at all joints. No bony deformities or tenderness. No CVA tenderness. EXTREMITIES: L AKA. R lower extremity with amputated 4th toe. No cyanosis. No clubbing. No edema. No calf tenderness. SKIN: 4th r toe with stage 3 pressure ulcer, purulent drainage. Surrounding cellulitis to the ventral R foot. Warm and dry. Normal capillary refill. No rashes. No jaundice. NEUROLOGICAL: Alert, awake, appropriate. Cranial nerves 2-12 intact. No deficits to light touch and temperature in face, upper extremities and lower extremities. No motor deficits in the in face, upper extremities and lower extremities. Normoreflexic in the upper and lower extremities. Normal speech. Toes are down- going bilaterally. Gait is normal without ataxia. PSYCHIATRIC: Cooperative. Good eye contact. Appropriate mood and affect. ED Treatment Course - LABORATORY CBC & Chemistry Diagram: 08/26/17 12:36 08/26/17 14:16 Medical Decision Making - Medical Decision Making 08/26/17 15:54 Patient is a 67-year-old male with past medical history of vascular disease, who presents emergency department for a infected right foot. The base of the fourth right toe is with purulent drainage and stage III pressure ulcer. Surrounding cellulitis to the base of the toes. Will need IV antibiotics at this time. No leukocytosis at this time. Electrolytes within normal limits. Blood cultures drawn. Patient given vancomycin and Zosyn. Spoke with Dr. Mills to discuss the case. Accepts admission to [facility]. Dr. Guzman for vascular consult. 08/26/17 19:06 Foot x-ray with soft tissue swelling but no air or signs of osteomyitis. EKG: RAte 86 BPM, normal intervals normal, normal axis. No acute ST-T wave changes at this time. CXR: No acute findings. *DC/Admit/Observation/Transfer Diagnosis at time of Disposition: Cellulitis of right foot, Wound infection - Discharge Dispostion Condition at time of disposition: Stable Decision to Admit order: Yes - Referrals - Patient Instructions - Post Discharge Activity
[2017-08-26 13:12] LABS: BASO % 0.7 % (0-2.0); EOS % 0.6 % (0-4.5); HEMATOCRIT 26.4 % (35.4-49); LYMPH % 10.4 % (8-40); MCH 33.8 pg (25.7-33.7); MCHC 34.2 g/dl (32.0-35.9); MEAN CELL VOLUME 98.8 fl (80-96); MEAN PLT VOLUME 9.9 fl (7.5-11.1); MONO % 6.9 % (3.8-10.2); NEUT % 81.4 % (42.8-82.8); PLATELET COUNT 242 K/MM3 (134-434); RBC 2.68 M/mm3 (4.00-5.60); RDW 15.2 % (11.9-15.9); WHITE BLOOD COUNT 7.9 K/mm3 (4.0-10.0)
[2017-08-26] MEDS ORDERED: VANCOMYCIN 1,000 MG in DEXTROSE 5%-WATER - 250 ML IVPB ONE (13:31)
[2017-08-26] MEDS ORDERED: PIPERACILLIN/TAZOB 3.375 GM 3.375 GM in DEXTROSE 5%-WATER - 50 ML IVPB ONE (13:32)
[2017-08-26 13:40] LABS: ALBUMIN 3.7 g/dl (3.4-5.0); ALK PHOS 97 U/L (45-117); ANION GAP 5 (8-16); BLOOD UREA NITROGEN 16 mg/dL (7-18); CHLORIDE 108 mmol/L (98-107); CO2 26 mmol/L (21-32); GLUCOSE,RANDOM 87 mg/dL (74-106); SGPT/ALT 33 U/L (12-78); SODIUM 139 mmol/L (136-145); TOT PROT 7.6 g/dl (6.4-8.2)
[2017-08-26] MEDS ORDERED: VANCOMYCIN 1 GRAM (PRE-DOCKED) 1,000 MG/250 ML BAG IVPB ONE (14:10)
[2017-08-26] MEDS ORDERED: PIPERACILLIN/TAZOB 3.375 GM 3.375 GM/50 ML BAG IVPB ONE (14:11)
[2017-08-26 14:12] LABS: POTASSIUM 5.7 mmol/L (3.5-5.1); SGOT/AST 74 U/L (15-37)
[2017-08-26 14:51] LABS: ALBUMIN 3.7 g/dl (3.4-5.0); ANION GAP 7 (8-16); BILIRUBIN,TOTAL 0.8 mg/dL (0.2-1.0); BLOOD UREA NITROGEN 16 mg/dL (7-18); CHLORIDE 111 mmol/L (98-107); CO2 24 mmol/L (21-32); CREATININE 0.9 mg/dL (0.7-1.3); GLUCOSE,RANDOM 83 mg/dL (74-106); POTASSIUM 4.3 mmol/L (3.5-5.1); SGOT/AST 32 U/L (15-37); SGPT/ALT 26 U/L (12-78); SODIUM 142 mmol/L (136-145)
[2017-08-26 14:52] LABS: ALK PHOS 97 U/L (45-117)
--- NOTE | 2017-08-26 16:35 | HP ---
Admitting History and Physical - Primary Care Physician PCP: Ambrosio Mills - Admission Chief Complaint: SENT FROM WOUND CARE History of Present Illness: Patient is a 67-year-old male past medical history of vascular disease, who presents emergency department today from wound care. Patient states that the base of his right fourth toe is infected and he has pain to the surrounding foot. He states he has had pain to the foot for three weeks. The fourth toe is amputated. Denies fevers, chills, shortness of breath, difficulty breathing, chest pain, palpitations, nausea, vomiting, diarrhea, frequency, urgency and hematuria. History Source: Medical Record - Past Medical History Cardiovascular: Yes: Hyperlipdemia. No: AFIB, Aneurysm, Aortic Insufficiency, Aortic Stenosis, CAD, CHF, Deep Vein Thrombosis, HTN, [place], Mitral Insufficiency, Mitral Stenosis, Murmur, Pulmonary Hypertension, Other Gastrointestinal: Yes: Cancer (colon), GI Bleed. No: Ascites, Constipation, Crohn's Disease, Diverticulitis, Diverticulosis, Esophageal Varices, Gastritis, GERD, Hemorrhoids, Hiatal Hernia, Inflamatory Bowel Disease, Irritable Bowel Disease, Pancreatitis, Peptic Ulcer Disease, Ulcerative Colitis, Other Heme/Onc: Yes: Cancer (colon), Sickle Cell Trait. 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 [Santyl] 1 applic TP DAILY #1 oint...g. 06/18/17 Albuterol 0.083% Nebulizer Ni [Ventolin 0.083% Nebulizer Soln -] 1 amp NEB PRN 07/30/17 Becaplermin [Regranex] 15 gm TP DAILY #1 gel..gram. 08/22/17 Oxycodone HCl/Acetaminophen [Percocet 10-325 mg Tablet] 1 each PO QID #120 tablet MDD 4 08/22/17 Family Disease History - Family Disease History Family Disease History: Other: Father (Sickle Cell Trait) Review of Systems - Review of Systems Constitutional: reports: Fever Eyes: reports: No Symptoms HENT: reports: No Symptoms Neck: reports: No Symptoms Cardiovascular: reports: No Symptoms Respiratory: reports: No Symptoms Gastrointestinal: reports: No Symptoms Genitourinary: reports: No Symptoms Musculoskeletal: reports: Other Integumentary: reports: Wound (RIGHT 4TH DIGIT) Neurological: reports: Pre-Existing Deficit Endocrine: reports: No Symptoms Hematology/Lymphatic: reports: No Symptoms Psychiatric: reports: No Symptoms Physical Examination Vital Signs: Vital Signs Temperature 98.6 F 08/26/17 10:38 Pulse Rate 90 08/26/17 10:38 Respiratory Rate 18 08/26/17 10:38 Blood Pressure 112/58 08/26/17 10:38 O2 Sat by Pulse Oximetry (%) 100 08/26/17 10:38 Constitutional: Yes: Mild Distress Eyes: Yes: WNL HENT: Yes: WNL Neck: Yes: WNL Cardiovascular: Yes: WNL Respiratory: Yes: WNL Gastrointestinal: Yes: WNL Renal/: Yes: WNL Musculoskeletal: Yes: WNL Extremities: Yes: Other Edema: No Peripheral Pulses WNL: Yes Integumentary: Yes: Pressure Ulcer, Venous Stasis Changes Wound/Incision: Yes: Dressing Dry and Intact, Excoriated (RIGHT 4TH DIGIT LOWER LEG) Neurological: Yes: Pre-Existing Deficit ...Motor Strength: RLE Psychiatric: Yes: WNL Labs: CBC, BMP 08/26/17 12:36 08/26/17 14:16 Problem List - Problems (1) Cellulitis of right foot Code(s): L03.115 - CELLULITIS OF RIGHT LOWER LIMB (2) Wound infection Code(s): T14.8XXA - OTHER INJURY OF UNSPECIFIED BODY REGION, INITIAL ENCOUNTER; L08.9 - LOCAL INFECTION OF THE SKIN AND SUBCUTANEOUS TISSUE, UNSP (3) Anemia Code(s): D64.9 - ANEMIA, UNSPECIFIED Qualifiers: Anemia type: unspecified type Qualified Code(s): D64.9 - Anemia, unspecified (4) Foot pain Code(s): M79.673 - PAIN IN UNSPECIFIED FOOT (5) Gangrene of toe Code(s): I96 - GANGRENE, NOT ELSEWHERE CLASSIFIED (6) History of colon cancer Code(s): Z85.038 - PERSONAL HISTORY OF MALIGNANT NEOPLASM OF LARGE INTESTINE (7) Hypercholesteremia Code(s): E78.0 - PURE HYPERCHOLESTEROLEMIA * DO NOT USE * (8) Peripheral arterial disease Code(s): I73.9 - PERIPHERAL VASCULAR DISEASE, UNSPECIFIED (9) S/P AKA (above knee amputation) unilateral Code(s): Z89.619 - ACQUIRED ABSENCE OF UNSPECIFIED LEG ABOVE KNEE (10) Smoker Code(s): F17.200 - NICOTINE DEPENDENCE, UNSPECIFIED, UNCOMPLICATED Assessment/Plan VAS SX EVAL SENT FROM WOUND CARE FOR IV ABX ID CONSULT PREOP? WILL D/W DR ROWENA DAVIES SX LABS IV ABX
[2017-08-26] MEDS: oxyCODONE HCL 5 MG TABLET PO PRN (19:49)
[2017-08-26] MEDS: HEPARIN NA (PORCINE) 5,000 UNITS/ML 1ML VIAL SQ SCH (21:20)
[2017-08-26] MEDS: ACETAMINOPHEN 325 MG TABLET (FP) PO PRN (23:50)
[2017-08-27] MEDS: oxyCODONE HCL 5 MG TABLET PO PRN ×4 (01:30→20:27)
[2017-08-27] MEDS: ACETAMINOPHEN 325 MG TABLET (FP) PO PRN ×3 (06:01→20:28)
[2017-08-27] MEDS ORDERED: PIPERACILLIN/TAZOB 3.375 GM 3.375 GM in DEXTROSE 5%-WATER - 50 ML IVPB ONE (06:21)
[2017-08-27] MEDS ORDERED: PIPERACILLIN/TAZOBACTAM 3.375 GM VIAL IVPB ONE ×2 (06:34→15:53)
[2017-08-27] MEDS ORDERED: DEXTROSE 5%-WATER - 50 ML IVPB ONE ×2 (06:35→15:53)
--- NOTE | 2017-08-27 10:50 | PN ---
Teaching Attending Note Name of Resident: Willy Macedo ATTENDING PHYSICIAN STATEMENT I saw and evaluated the patient. I reviewed the resident's note and discussed the case with the resident. I agree with the resident's findings and plan as documented. SUBJECTIVE: smokes 4 cigarettes a day history per resident consultation recent amputation of right 4ourth toe 07/31 reports improvement in swelling and pain right foot today no fevers or chills denies DM OBJECTIVE: Vital Signs Period Temp Pulse Resp BP Sys/Torres Pulse Ox Last 24 Hr 98.4 F-98.9 F 18-102 18-95 107-144/51-78 99-100 cor-rrr lungs clear abd soft,nt ext +femoral pulse cannot palpate DP in right foot open ulcer at amputations site pain lateral and proximal to ulcer with swelling/erythema also some pain at sole of the foot at the same site CBC, BMP 08/26/17 12:36 08/26/17 14:16 Microbiology 08/26/17 12:36 Toe - Right Fourth Wound Culture - Preliminary Presumptive Mrsa (Pbp2a Pos) ASSESSMENT AND PLAN: wound infection r/o osteomyelitis esr/crp vanco/zosyn until cultures are finalized MRI smoking cessation surgical f/u Problem List - Problems (1) Wound infection Code(s): T14.8XXA - OTHER INJURY OF UNSPECIFIED BODY REGION, INITIAL ENCOUNTER; L08.9 - LOCAL INFECTION OF THE SKIN AND SUBCUTANEOUS TISSUE, UNSP (2) Osteomyelitis Code(s): M86.9 - OSTEOMYELITIS, UNSPECIFIED (3) Smoking Code(s): F17.200 - NICOTINE DEPENDENCE, UNSPECIFIED, UNCOMPLICATED
[2017-08-27] MEDS ORDERED: VANCOMYCIN 750 MG in DEXTROSE 5%-WATER - 150 ML IVPB SCH (10:51)
[2017-08-27] MEDS: HEPARIN NA (PORCINE) 5,000 UNITS/ML 1ML VIAL SQ SCH ×2 (11:00→21:02)
[2017-08-27 11:02] LABS: CHOLESTEROL 187 mg/dL (50-200); HDL CHOLESTEROL 54 mg/dL (40-60); LDL CHOLESTEROL (ONLY SJRH) 118 mg/dL (5-100); TRIGLYCERIDES 108 mg/dL (35-160)
--- NOTE | 2017-08-27 11:11 | CON.ID ---
Consult Consult Specialty:: Infectious Disease Referred by:: Dr. Mills Reason for Consultation:: Right foot infection - History of Present Illness Chief Complaint: right foot pain History of Present Illness: The patient is a 67 yo M, active smoker w/ PMH PVD who was sent from the wound care clinic for an infected foot ulcer. The patient had been complaining of erythema, swelling and pain of the right foot which got progressively worse over the past 3 weeks. Patient also endorses purulent drainage of the wound. The patient has had multiple surgeries on his foot, with a partial 4th toe amputation on 07/17, a complete 4th toe amputation on 07/31, both for Gangrene of the digit. Patient is also s/p AKA of left foot in 04/2015. Per the patient, he had received outpatient antibiotics for this right toe infection in the past. Patient denies fever, chills. - History Source History Provided By: Patient Limitations to Obtaining History: No Limitations - Past Medical History Cardio/Vascular: Yes: Hyperlipdemia. No: AFIB, Aneurysm, Aortic Insufficiency, Aortic Stenosis, CAD, CHF, Deep Vein Thrombosis, HTN, ID, Mitral Insufficiency, Mitral Stenosis, Murmur, Pulmonary Hypertension, Other Gastrointestinal: Yes: Cancer (colon), GI Bleed. 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 [Santyl] 1 applic TP DAILY #1 oint...g. 06/18/17 Albuterol 0.083% Nebulizer Ni [Ventolin 0.083% Nebulizer Soln -] 1 amp NEB PRN 07/30/17 Becaplermin [Regranex] 15 gm TP DAILY #1 gel..gram. 08/22/17 Oxycodone HCl/Acetaminophen [Percocet 10-325 mg Tablet] 1 each PO QID #120 tablet MDD 4 08/22/17 Family Disease History - Family Disease History Family Disease History: Other: Father (Sickle Cell Trait) Review of Systems - Review of Systems Constitutional: denies: Chills, Diaphoresis, Fever, Lethargy Cardiovascular: denies: Chest Pain, Palpitations, Shortness of Breath Respiratory: denies: Cough, Orthopnea, SOB Gastrointestinal: denies: Abdominal Pain, Constipation, Diarrhea Integumentary: reports: Erythema (erythema and swelling of the foot.), Wound ( open wound at the base of the amputated right 4th toe.) Physical Exam Vital Signs: Vital Signs Temperature 98.9 F 08/27/17 09:00 Pulse Rate 102 H 08/27/17 09:00 Respiratory Rate 20 08/27/17 09:00 Blood Pressure 107/51 08/27/17 09:00 O2 Sat by Pulse Oximetry (%) 100 08/26/17 20:30 Constitutional: Yes: Well Nourished, No Distress, Calm HENT: Yes: Atraumatic, Normocephalic Cardiovascular: Yes: Regular Rate and Rhythm, S1, S2. No: JVD, Gallop, Murmur, Rub Respiratory: Yes: Regular, CTA Bilaterally Gastrointestinal: Yes: Normal Bowel Sounds, Soft. No: Tenderness Extremities: Yes: Amputation (right 4th toe and left AKA), Erythema (erythema and swelling of the right foot, seen along the dorsum, extending around the lateral side of the foot and into the plantar aspect of the foot. Entire area is tender to palpation.) Neurological: Yes: Alert, Oriented Psychiatric: Yes: Alert, Oriented Labs: CBC, BMP 08/26/17 12:36 08/26/17 14:16 Imaging - Results Chest X-ray: Report Reviewed, Image Reviewed X-ray: Report Reviewed, Image Reviewed Assessment/Plan The patient is a 67 yo m w/ PMH PVD who is admitted for the treatment of an infected right foot ulcer. -The wound is opened and draining serosanguinous fluid -There is erythema and swelling along the dorsum, lateral and plantar aspects of the right foot -wound culture growing MRSA -With this patient's recurrent infection and Hx of outpatient ABX therapy, Osteomyelitis is a concern. -Will order Vancomycin 750mg BID and Zosyn 3.375mg q8h -will order ESR, CRP in am -will order MRI w/ laura r/o osteo and abscess -will follow -case d/w Dr. Sherman
--- NOTE | 2017-08-27 11:22 | PN ---
Progress Note, Physician Chief Complaint: Wound infection History of Present Illness: C/O PAIN RIGHT FOOT Patient Name: Eric Santamaria Date: 1950 Address: [facility] [place] [address] Sex: Male Rx Written Rx Dispensed Drug Quantity Days Supply Prescriber Name 08/22/2017 08/22/2017 oxycodone-acetaminophen 10-325 mg tab 120 30 Guzman, Gilbert S (DO) 04/28/2017 08/20/2017 tramadol hcl 50 mg tablet 60 30 Fernandez, Ishan TURCIOS 07/17/2017 07/18/2017 endocet 5-325 tablet 60 15 Guzman, Gilbert S (DO) 04/28/2017 07/16/2017 tramadol hcl 50 mg tablet 60 30 Fernandez, Ishan TURCIOS 04/28/2017 06/18/2017 tramadol hcl 50 mg tablet 60 30 Fernandez, Ishan TURCIOS 06/13/2017 06/14/2017 endocet 5-325 tablet 20 5 Armand Schaefer () 04/28/2017 04/28/2017 tramadol hcl 50 mg tablet 60 30 Fernandez, Ishan TURCIOS 12/30/2016 03/19/2017 tramadol hcl 50 mg tablet 21 7 Gerald, Alma Delia 12/30/2016 02/17/2017 tramadol hcl 50 mg tablet 21 7 Gerald, Alma Delia 12/30/2016 01/23/2017 tramadol hcl 50 mg tablet 21 7 Gerald, Alma Delia 12/30/2016 12/30/2016 tramadol hcl 50 mg tablet 21 7 Gerald, Alma Delia 08/22/2016 09/03/2016 endocet 5-325 tablet 120 30 Guzman, Gilbert S (DO) - Current Medication List Current Medications: Active Medications Acetaminophen (Tylenol -) 650 mg PO Q6H PRN PRN Reason: PAIN LEVEL 1-5 Last Admin: 08/27/17 06:01 Dose: 650 mg Heparin Sodium (Porcine) (Heparin -) 5,000 unit SQ BID NEHEMIAH Last Admin: 08/27/17 11:00 Dose: 5,000 unit Piperacillin Sod/Tazobactam (Sod 3.375 gm/ Dextrose) 50 mls @ 100 mls/hr IVPB Q8H NEHEMIAH PRN Reason: Protocol Vancomycin HCl 750 mg/ (Dextrose) 150 mls @ 150 mls/hr IVPB BID NEHEMIAH PRN Reason: Protocol Oxycodone HCl (Roxicodone -) 10 mg PO Q6H PRN PRN Reason: PAIN LEVEL 6-10 Last Admin: 08/27/17 07:43 Dose: 10 mg - Objective Vital Signs: Vital Signs Temperature 98.9 F 08/27/17 09:00 Pulse Rate 102 H 08/27/17 09:00 Respiratory Rate 20 08/27/17 09:00 Blood Pressure 107/51 08/27/17 09:00 O2 Sat by Pulse Oximetry (%) 98 08/27/17 09:00 Constitutional: Yes: No Distress, Calm, Cachectic Cardiovascular: Yes: Regular Rate and Rhythm Respiratory: Yes: Regular Gastrointestinal: Yes: Normal Bowel Sounds, Soft Musculoskeletal: Yes: Muscle Pain (right foot pain) Extremities: Yes: Amputation (left leg) Neurological: Yes: Alert, Oriented Psychiatric: Yes: Alert, Oriented Labs: CBC, BMP 08/26/17 12:36 08/26/17 14:16 Problem List - Problems (1) Cellulitis of right foot Assessment/Plan: -ID consult -IV abx -Pain management- HCS checked -add tramadol and gabapentin -labs today including ESR, CRP Code(s): L03.115 - CELLULITIS OF RIGHT LOWER LIMB (2) Peripheral arterial disease Code(s): I73.9 - PERIPHERAL VASCULAR DISEASE, UNSPECIFIED (3) CAD (coronary artery disease) Assessment/Plan: -statin Code(s): I25.10 - ATHSCL HEART DISEASE OF [place] CORONARY ARTERY W/O ANG PCTRS (4) Anemia Assessment/Plan: -check A1c, -iron profile, b12, folate, thyroid profile and stool OB -monitor trend with normal transfusion parameters Code(s): D64.9 - ANEMIA, UNSPECIFIED Qualifiers: Anemia type: unspecified type Qualified Code(s): D64.9 - Anemia, unspecified Assessment/Plan see problem list
[2017-08-27] MEDS ORDERED: VANCOMYCIN 750 MG in DEXTROSE 5%-WATER - 250 ML IVPB ONE (11:30)
[2017-08-27] MEDS: ZINC SULFATE 220 MG CAPSULE (FP) PO SCH ×2 (12:23→21:03)
[2017-08-27] MEDS: MULTIVITAMINS (DAILY MVI) TABLET (FP) PO SCH (12:23)
[2017-08-27] MEDS: traMADol HCL 50 MG TABLET PO PRN (12:23)
[2017-08-27 12:31] LABS: BASO % 0.5 % (0-2.0); EOS % 1.1 % (0-4.5); HEMATOCRIT 25.2 % (35.4-49); HEMOGLOBIN 8.6 GM/dL (11.7-16.9); LYMPH % 13.2 % (8-40); MCHC 34.3 g/dl (32.0-35.9); MEAN CELL VOLUME 99.2 fl (80-96); MEAN PLT VOLUME 8.8 fl (7.5-11.1); MONO % 7.4 % (3.8-10.2); NEUT % 77.8 % (42.8-82.8); PLATELET COUNT 184 K/MM3 (134-434); RBC 2.54 M/mm3 (4.00-5.60); RDW 14.9 % (11.9-15.9); WHITE BLOOD COUNT 7.1 K/mm3 (4.0-10.0)
--- NOTE | 2017-08-27 13:04 | EKG ---
Test Reason : Blood Pressure : / mmHG Vent. Rate : 086 BPM Atrial Rate : 086 BPM P-R Int : 136 ms QRS Dur : 080 ms QT Int : 362 ms P-R-T Axes : 071 -17 037 degrees QTc Int : 433 ms SINUS RHYTHM WITH PREMATURE ATRIAL COMPLEXES MODERATE VOLTAGE CRITERIA FOR LVH, MAY BE NORMAL VARIANT CANNOT RULE OUT SEPTAL INFARCT (CITED ON OR BEFORE 20-APR-2015) T WAVE ABNORMALITY, CONSIDER LATERAL ISCHEMIA ABNORMAL ECG WHEN COMPARED WITH ECG OF 13-JUN-2017 12:51, NO SIGNIFICANT CHANGE WAS FOUND Confirmed by QASIM HAGAN MD ([id number]) on 08/27/2017 1:04:39 PM Referred By: Confirmed By:QASIM HAGAN MD
[2017-08-27] MEDS: GABAPENTIN 300 MG CAPSULE (FP) PO SCH ×2 (14:16→21:02)
[2017-08-27 14:19] LABS: ERYTHROCYTE SEDIMENTATION RATE 96 mm/hr (0-20)
[2017-08-27 15:59] LABS: ALBUMIN 3.7 g/dl (3.4-5.0); ANION GAP 8 (8-16); BLOOD UREA NITROGEN 24 mg/dL (7-18); CHLORIDE 111 mmol/L (98-107); CO2 24 mmol/L (21-32); POTASSIUM 4.2 mmol/L (3.5-5.1); SODIUM 143 mmol/L (136-145)
[2017-08-27 16:03] LABS: ALK PHOS 97 U/L (45-117); BILIRUBIN,TOTAL 0.8 mg/dL (0.2-1.0); GLUCOSE,RANDOM 85 mg/dL (74-106); SGOT/AST 33 U/L (15-37); SGPT/ALT 28 U/L (12-78); TOT PROT 7.3 g/dl (6.4-8.2)
[2017-08-27] MEDS: PIPERACILLIN/TAZOB 3.375 GM 3.375 GM in DEXTROSE 5%-WATER - 50 ML IVPB SCH ×2 (16:10→20:52)
[2017-08-27] MEDS: AMINO ACIDS/PROTEIN HYDROLYS 30 ML LIQUID.PKT PO SCH (16:53)
--- NOTE | 2017-08-27 17:51 | PN ---
Progress Note (short form) - Note Progress Note: VAscular Surgery Pt seen and examined. Dressing changed. Pt with palpable Popliteal pulse, and dopplerable dp pulse. Pt recently had angiogram , angioplasty . Then toe amputation. Wound is not healing due to microvascular disease in foot. Pt does not have any bypassable disease. Can treat wound with antibiotics. Prob chronic osteo -- since pt has dry gangrene of that site prior. Gilbert Guzman DO
[2017-08-27] MEDS: ROSUVASTATIN CA 5 MG TABLET (FP) PO SCH (21:02)
[2017-08-27] MEDS: VANCOMYCIN 750 MG in DEXTROSE 5%-WATER - 250 ML IVPB SCH (23:32)
[2017-08-28] MEDS ORDERED: PIPERACILLIN/TAZOBACTAM 3.375 GM VIAL IVPB ONE ×3 (00:43→17:57)
[2017-08-28] MEDS ORDERED: DEXTROSE 5%-WATER - 50 ML IVPB ONE ×3 (00:43→17:57)
[2017-08-28] MEDS: traMADol HCL 50 MG TABLET PO PRN ×2 (01:00→21:18)
[2017-08-28] MEDS: PIPERACILLIN/TAZOB 3.375 GM 3.375 GM in DEXTROSE 5%-WATER - 50 ML IVPB SCH ×3 (01:00→18:11)
[2017-08-28] MEDS: oxyCODONE HCL 5 MG TABLET PO PRN ×4 (02:33→23:39)
[2017-08-28] MEDS: ACETAMINOPHEN 325 MG TABLET (FP) PO PRN ×3 (02:34→19:02)
[2017-08-28] MEDS: GABAPENTIN 300 MG CAPSULE (FP) PO SCH ×3 (05:41→21:19)
[2017-08-28] MEDS ORDERED: oxyCODONE HCL 5 MG TABLET PO ONE (07:00)
[2017-08-28 07:31] LABS: BASO % 0.7 % (0-2.0); EOS % 1.3 % (0-4.5); HEMATOCRIT 24.4 % (35.4-49); HEMOGLOBIN 8.3 GM/dL (11.7-16.9); LYMPH % 11.9 % (8-40); MCH 34.1 pg (25.7-33.7); MCHC 34.2 g/dl (32.0-35.9); MEAN CELL VOLUME 99.6 fl (80-96); MEAN PLT VOLUME 9.2 fl (7.5-11.1); MONO % 8.5 % (3.8-10.2); NEUT % 77.6 % (42.8-82.8); PLATELET COUNT 149 K/MM3 (134-434); RBC 2.45 M/mm3 (4.00-5.60); RDW 14.8 % (11.9-15.9); WHITE BLOOD COUNT 6.4 K/mm3 (4.0-10.0)
[2017-08-28 08:54] LABS: CHLORIDE 110 mmol/L (98-107); POTASSIUM 4.1 mmol/L (3.5-5.1); SODIUM 141 mmol/L (136-145)
[2017-08-28] MEDS ORDERED: PT OWN MED DRAWER 7, Y5N ONE (09:03)
[2017-08-28] MEDS: ZINC SULFATE 220 MG CAPSULE (FP) PO SCH ×2 (09:13→21:19)
[2017-08-28] MEDS: MULTIVITAMINS (DAILY MVI) TABLET (FP) PO SCH (09:13)
[2017-08-28] MEDS: AMINO ACIDS/PROTEIN HYDROLYS 30 ML LIQUID.PKT PO SCH ×2 (09:13→18:11)
[2017-08-28] MEDS: HEPARIN NA (PORCINE) 5,000 UNITS/ML 1ML VIAL SQ SCH ×2 (09:14→21:19)
[2017-08-28 09:15] LABS: ALBUMIN 3.1 g/dl (3.4-5.0); ALK PHOS 87 U/L (45-117); ANION GAP 9 (8-16); BILIRUBIN,TOTAL 1.2 mg/dL (0.2-1.0); BLOOD UREA NITROGEN 20 mg/dL (7-18); CALCIUM 8.7 mg/dL (8.5-10.1); CO2 22 mmol/L (21-32); GLUCOSE,RANDOM 80 mg/dL (74-106); SGOT/AST 29 U/L (15-37); SGPT/ALT 24 U/L (12-78); TOT PROT 6.5 g/dl (6.4-8.2)
--- NOTE | 2017-08-28 09:44 | PN ---
Progress Note, Physician History of Present Illness: Infectious Disease Follow up: Patient seen adn examined on bedside. On contact ISO for MRSA. Patient states swelling and pain is better today. Was unable to tolerate MRI yesterday 2/2 to pain. - Current Medication List Current Medications: Active Medications Acetaminophen (Tylenol -) 650 mg PO Q6H PRN PRN Reason: PAIN LEVEL 1-5 Last Admin: 08/28/17 02:34 Dose: 650 mg Amino Acids (Prosource No Carb Liquid Pkt) 30 ml PO BID@0800,1730 [facility] Last Admin: 08/28/17 09:13 Dose: 30 ml Gabapentin (Neurontin -) 300 mg PO TID [facility] Last Admin: 08/28/17 05:41 Dose: 300 mg Heparin Sodium (Porcine) (Heparin -) 5,000 unit SQ BID [facility] Last Admin: 08/28/17 09:14 Dose: 5,000 unit Piperacillin Sod/Tazobactam (Sod 3.375 gm/ Dextrose) 50 mls @ 100 mls/hr IVPB Q8H-IV [facility] PRN Reason: Protocol Last Admin: 08/28/17 09:13 Dose: 100 mls/hr Vancomycin HCl 750 mg/ (Dextrose) 250 mls @ 250 mls/hr IVPB Q12H [facility] Last Admin: 08/27/17 23:32 Dose: 250 mls/hr Multivitamins/Minerals/Vitamin C (Tab-A-Vit -) 1 tab PO DAILY [facility] Last Admin: 08/28/17 09:13 Dose: 1 tab Oxycodone HCl (Roxicodone -) 10 mg PO Q6H PRN PRN Reason: PAIN LEVEL 6-10 Last Admin: 08/28/17 02:33 Dose: 10 mg Rosuvastatin Calcium (Crestor -) 5 mg PO HS [facility] Last Admin: 08/27/17 21:02 Dose: 5 mg Tramadol HCl (Ultram -) 50 mg PO Q8H PRN PRN Reason: PAIN LEVEL 4 - 6 Last Admin: 08/28/17 01:00 Dose: 50 mg Zinc Sulfate (Orazinc -) 220 mg PO BID [facility] Last Admin: 08/28/17 09:13 Dose: 220 mg - Objective Vital Signs: Vital Signs Temperature 98.4 F 08/28/17 06:00 Pulse Rate 92 H 08/28/17 06:00 Respiratory Rate 20 08/28/17 06:00 Blood Pressure 132/80 08/28/17 06:00 O2 Sat by Pulse Oximetry (%) 99 08/27/17 21:00 Constitutional: Yes: Well Nourished, No Distress, Calm HENT: Yes: Atraumatic, Normocephalic Cardiovascular: Yes: Regular Rate and Rhythm, S1, S2. No: JVD, Gallop, Murmur, Rub Respiratory: Yes: Regular, CTA Bilaterally Gastrointestinal: Yes: Normal Bowel Sounds, Soft Extremities: Yes: Other (foot seen unwrapped. wound at base of 4th toe more dry today. Swelling and erythema described yesterday is improved.) Neurological: Yes: Alert, Oriented Psychiatric: Yes: Alert, Oriented Labs: CBC, BMP 08/28/17 07:10 08/28/17 07:10 Assessment/Plan The patient is a 67 yo m w/ PMH PVD who is admitted for the treatment of an infected right foot ulcer. -erythema and swelling improved today -wound culture growing MRSA -c/w Vancomycin 750mg BID and Zosyn 3.375mg q8h -ESR 96, CRP 8.7 -f/u MRI w/ laura r/o osteo and abscess. Sedation/anxiolytic may aid in obtaining. -will follow -case d/w Dr. Sherman
[2017-08-28] MEDS: VANCOMYCIN 750 MG in DEXTROSE 5%-WATER - 250 ML IVPB SCH ×2 (11:47→23:40)
--- NOTE | 2017-08-28 13:51 | PN ---
Progress Note, Physician Chief Complaint: patient seen and examined complaining of pain in right foot no BM for 3 days - Current Medication List Current Medications: Active Medications Acetaminophen (Tylenol -) 650 mg PO Q6H PRN PRN Reason: PAIN LEVEL 1-5 Last Admin: 08/28/17 13:07 Dose: 650 mg Amino Acids (Prosource No Carb Liquid Pkt) 30 ml PO BID@0800,1730 [facility] Last Admin: 08/28/17 09:13 Dose: 30 ml Gabapentin (Neurontin -) 300 mg PO TID [facility] Last Admin: 08/28/17 13:09 Dose: 300 mg Heparin Sodium (Porcine) (Heparin -) 5,000 unit SQ BID [facility] Last Admin: 08/28/17 09:14 Dose: 5,000 unit Piperacillin Sod/Tazobactam (Sod 3.375 gm/ Dextrose) 50 mls @ 100 mls/hr IVPB Q8H-IV NE[facility] PRN Reason: Protocol Last Admin: 08/28/17 09:13 Dose: 100 mls/hr Vancomycin HCl 750 mg/ (Dextrose) 250 mls @ 250 mls/hr IVPB Q12H [facility] Last Admin: 08/28/17 11:47 Dose: 250 mls/hr Multivitamins/Minerals/Vitamin C (Tab-A-Vit -) 1 tab PO DAILY [facility] Last Admin: 08/28/17 09:13 Dose: 1 tab Oxycodone HCl (Roxicodone -) 10 mg PO Q6H PRN PRN Reason: PAIN LEVEL 6-10 Last Admin: 08/28/17 13:08 Dose: 10 mg Polyethylene Glycol (Miralax (For Daily Use) -) 17 gm PO BID [facility] Rosuvastatin Calcium (Crestor -) 5 mg PO HS [facility] Last Admin: 08/27/17 21:02 Dose: 5 mg Tramadol HCl (Ultram -) 50 mg PO Q8H PRN PRN Reason: PAIN LEVEL 4 - 6 Last Admin: 08/28/17 01:00 Dose: 50 mg Zinc Sulfate (Orazinc -) 220 mg PO BID [facility] Last Admin: 08/28/17 09:13 Dose: 220 mg - Objective Vital Signs: Vital Signs Temperature 97.9 F 08/28/17 09:00 Pulse Rate 82 08/28/17 09:00 Respiratory Rate 18 08/28/17 09:00 Blood Pressure 118/73 08/28/17 09:00 O2 Sat by Pulse Oximetry (%) 99 08/27/17 21:00 Constitutional: Yes: Calm Cardiovascular: Yes: Regular Rate and Rhythm, S1, S2 Respiratory: Yes: CTA Bilaterally Gastrointestinal: Yes: Normal Bowel Sounds, Soft Extremities: Yes: Other (left foot amputation) Edema: No Wound/Incision: Yes: Other (right foot 4 toe open wound) Neurological: Yes: Alert, Oriented Labs: CBC, BMP 08/28/17 07:10 08/28/17 07:10 Problem List - Problems (1) Wound infection Assessment/Plan: abx vanco and zosyn ID and vascular on board isolation for MRSA Microbiology 08/26/17 12:36 Toe - Right Fourth Gram Stain - Final 08/26/17 12:36 Toe - Right Fourth Wound Culture - Final Mr Sosa Aureus to go for MRI today dvt ppx Code(s): T14.8XXA - OTHER INJURY OF UNSPECIFIED BODY REGION, INITIAL ENCOUNTER; L08.9 - LOCAL INFECTION OF THE SKIN AND SUBCUTANEOUS TISSUE, UNSP (2) Foot pain Assessment/Plan: pain control and stool softners Code(s): M79.673 - PAIN IN UNSPECIFIED FOOT (3) Hypercholesteremia Assessment/Plan: crestor Code(s): E78.0 - PURE HYPERCHOLESTEROLEMIA * DO NOT USE *
[2017-08-28 14:12] LABS: CHOLESTEROL 187 mg/dL (50-200); LDL CHOLESTEROL (ONLY SJRH) 118 mg/dL (5-100); TRIGLYCERIDES 122 mg/dL (35-160)
[2017-08-28 14:19] LABS: HDL CHOLESTEROL 54 mg/dL (40-60)
--- NOTE | 2017-08-28 15:32 | PN ---
Teaching Attending Note Name of Resident: Willy Macedo ATTENDING PHYSICIAN STATEMENT I saw and evaluated the patient. I reviewed the resident's note and discussed the case with the resident. I agree with the resident's findings and plan as documented. SUBJECTIVE: OBJECTIVE: Vital Signs Period Temp Pulse Resp BP Sys/Torres Pulse Ox Last 24 Hr 97.3 F-98.4 F 82-109 16-20 104-158/58-80 99 foot unchanged Laboratory Tests 08/27/17 08/27/17 12:20 12:20 ESR 96 H C-Reactive Protein 8.7 H ASSESSMENT AND PLAN: suspect osteomyeliits- MRSA awiating MRI will need picc and shelter antibiotcs if MRI confirms osteo Problem List - Problems (1) Wound infection Code(s): T14.8XXA - OTHER INJURY OF UNSPECIFIED BODY REGION, INITIAL ENCOUNTER; L08.9 - LOCAL INFECTION OF THE SKIN AND SUBCUTANEOUS TISSUE, UNSP (2) Osteomyelitis Code(s): M86.9 - OSTEOMYELITIS, UNSPECIFIED (3) Smoking Code(s): F17.200 - NICOTINE DEPENDENCE, UNSPECIFIED, UNCOMPLICATED
[2017-08-28] MEDS ORDERED: INSULIN (NOVOLOG) ASPART 100 UNITS/ML 10ML VIAL ONE (17:57)
[2017-08-28] MEDS: COLLAGENASE CLOSTRIDIUM HIST. 30 GRAMS TUBE TP SCH (18:11)
[2017-08-28] MEDS ORDERED: LORazepam 0.5 MG TABLET PO ONE (19:15)
[2017-08-28] MEDS: POLYETHYLENE GLYCOL 3350 119 GM BTL PO SCH (21:19)
[2017-08-28] MEDS: ROSUVASTATIN CA 5 MG TABLET (FP) PO SCH (21:19)
[2017-08-29] MEDS ORDERED: PIPERACILLIN/TAZOBACTAM 3.375 GM VIAL IVPB ONE ×2 (01:33→09:20)
[2017-08-29] MEDS ORDERED: DEXTROSE 5%-WATER - 50 ML IVPB ONE ×2 (01:34→09:20)
[2017-08-29] MEDS: PIPERACILLIN/TAZOB 3.375 GM 3.375 GM in DEXTROSE 5%-WATER - 50 ML IVPB SCH ×2 (02:45→09:29)
[2017-08-29] MEDS: ACETAMINOPHEN 325 MG TABLET (FP) PO PRN ×2 (03:13→18:42)
[2017-08-29] MEDS: oxyCODONE HCL 5 MG TABLET PO PRN ×2 (03:36→12:04)
[2017-08-29] MEDS: GABAPENTIN 300 MG CAPSULE (FP) PO SCH ×3 (05:55→21:41)
[2017-08-29 07:45] LABS: BASO % 0.2 % (0-2.0); HEMATOCRIT 25.4 % (35.4-49); HEMOGLOBIN 8.6 GM/dL (11.7-16.9); LYMPH % 12.1 % (8-40); MCH 33.7 pg (25.7-33.7); MEAN CELL VOLUME 99.3 fl (80-96); MEAN PLT VOLUME 8.5 fl (7.5-11.1); MONO % 7.2 % (3.8-10.2); NEUT % 79.5 % (42.8-82.8); PLATELET COUNT 170 K/MM3 (134-434); RBC 2.56 M/mm3 (4.00-5.60); WHITE BLOOD COUNT 7.3 K/mm3 (4.0-10.0)
[2017-08-29 08:08] LABS: SERUM IRON SATURATION 11 % (15-55); TOTAL IRON BINDING CAPACITY 257 ug/dL (250-450); UIBC 228 ug/dL (111-343)
[2017-08-29 08:11] LABS: ALBUMIN 3.3 g/dl (3.4-5.0); ANION GAP 5 (8-16); BLOOD UREA NITROGEN 25 mg/dL (7-18); CALCIUM 8.8 mg/dL (8.5-10.1); CHLORIDE 110 mmol/L (98-107); CO2 26 mmol/L (21-32); GLUCOSE,RANDOM 89 mg/dL (74-106); POTASSIUM 3.8 mmol/L (3.5-5.1); SODIUM 141 mmol/L (136-145)
[2017-08-29 08:14] LABS: ALK PHOS 86 U/L (45-117); BILIRUBIN,TOTAL 0.6 mg/dL (0.2-1.0); SGOT/AST 26 U/L (15-37); SGPT/ALT 24 U/L (12-78); TOT PROT 6.8 g/dl (6.4-8.2)
[2017-08-29] MEDS: traMADol HCL 50 MG TABLET PO PRN ×2 (08:26→15:52)
[2017-08-29] MEDS: AMINO ACIDS/PROTEIN HYDROLYS 30 ML LIQUID.PKT PO SCH ×2 (08:27→16:54)
[2017-08-29 08:50] LABS: ERYTHROCYTE SEDIMENTATION RATE 86 mm/hr (0-20)
[2017-08-29] MEDS: ZINC SULFATE 220 MG CAPSULE (FP) PO SCH ×2 (09:27→21:41)
[2017-08-29] MEDS: MULTIVITAMINS (DAILY MVI) TABLET (FP) PO SCH (09:27)
[2017-08-29] MEDS: POLYETHYLENE GLYCOL 3350 119 GM BTL PO SCH ×2 (09:28→21:41)
[2017-08-29] MEDS: HEPARIN NA (PORCINE) 5,000 UNITS/ML 1ML VIAL SQ SCH ×2 (09:36→21:41)
[2017-08-29] MEDS: VANCOMYCIN 750 MG in DEXTROSE 5%-WATER - 250 ML IVPB SCH (11:06)
[2017-08-29] MEDS: COLLAGENASE CLOSTRIDIUM HIST. 30 GRAMS TUBE TP SCH (12:35)
--- NOTE | 2017-08-29 13:32 | PN ---
Progress Note, Physician History of Present Illness: Infectious Disease Follow up: Patient seen and examined on bedside. On contact ISO for MRSA. Patient states swelling and pain is better today. Patient unable to tolerate MRI again today 2/ 2 pain - Current Medication List Current Medications: Active Medications Acetaminophen (Tylenol -) 650 mg PO Q6H PRN PRN Reason: PAIN LEVEL 1-5 Last Admin: 08/29/17 03:13 Dose: 650 mg Amino Acids (Prosource No Carb Liquid Pkt) 30 ml PO BID@0800,1730 [facility] Last Admin: 08/29/17 08:27 Dose: 30 ml Collagenase (Santyl -) 1 applic TP DAILY [facility] Last Admin: 08/29/17 12:35 Dose: 1 applic Gabapentin (Neurontin -) 300 mg PO TID [facility] Last Admin: 08/29/17 05:55 Dose: 300 mg Heparin Sodium (Porcine) (Heparin -) 5,000 unit SQ BID [facility] Last Admin: 08/29/17 09:36 Dose: 5,000 unit Piperacillin Sod/Tazobactam (Sod 3.375 gm/ Dextrose) 50 mls @ 100 mls/hr IVPB Q8H-IV [facility] PRN Reason: Protocol Last Admin: 08/29/17 09:29 Dose: 100 mls/hr Vancomycin HCl 750 mg/ (Dextrose) 250 mls @ 250 mls/hr IVPB Q12H [facility] Last Admin: 08/29/17 11:06 Dose: 250 mls/hr Lorazepam (Ativan -) 1 mg PO ONCE ONE Stop: 08/28/17 19:16 Multivitamins/Minerals/Vitamin C (Tab-A-Vit -) 1 tab PO DAILY [facility] Last Admin: 08/29/17 09:27 Dose: 1 tab Oxycodone HCl (Roxicodone -) 10 mg PO Q4H PRN PRN Reason: PAIN LEVEL 6-10 Last Admin: 08/29/17 12:04 Dose: 10 mg Polyethylene Glycol (Miralax (For Daily Use) -) 17 gm PO BID [facility] Last Admin: 08/29/17 09:28 Dose: 17 gm Rosuvastatin Calcium (Crestor -) 5 mg PO HS [facility] Last Admin: 08/28/17 21:19 Dose: 5 mg Tramadol HCl (Ultram -) 50 mg PO Q8H PRN PRN Reason: PAIN LEVEL 4 - 6 Last Admin: 08/29/17 08:26 Dose: 50 mg Zinc Sulfate (Orazinc -) 220 mg PO BID [facility] Last Admin: 08/29/17 09:27 Dose: 220 mg - Objective Vital Signs: Vital Signs Temperature 97.6 F 08/29/17 10:00 Pulse Rate 72 08/29/17 10:00 Respiratory Rate 18 08/29/17 10:00 Blood Pressure 114/72 08/29/17 10:00 O2 Sat by Pulse Oximetry (%) 98 08/29/17 09:00 Constitutional: Yes: Well Nourished, No Distress, Calm Cardiovascular: Yes: Regular Rate and Rhythm, S1, S2. No: JVD, Gallop, Murmur, Rub Respiratory: Yes: Regular, CTA Bilaterally Gastrointestinal: Yes: Normal Bowel Sounds, Soft Extremities: Yes: Amputation (left), Other (erythema and swelling of the right foot is improved today.) Neurological: Yes: Alert, Oriented Psychiatric: Yes: Alert, Oriented Labs: CBC, BMP 08/29/17 07:30 08/29/17 07:30 Assessment/Plan The patient is a 67 yo m w/ PMH PVD who is admitted for the treatment of an infected right foot ulcer. -erythema and swelling improved today -wound culture growing MRSA -Vancomycin trough elevated today; will hold today's PM dose. will obtain random vanc in AM -c/w Zosyn 3.375mg q8h -f/u MRI r/o osteo and abscess. Sedation/anxiolytic may aid in obtaining. -will follow -case d/w Dr. Sherman
[2017-08-29] MEDS ORDERED: IRON SUCROSE INJECTION 100 MG in SODIUM CHLORIDE 95 ML IVPB ONE (14:04)
--- NOTE | 2017-08-29 14:11 | PN ---
Progress Note, Physician Chief Complaint: patient still not gotten MRI as yet and had BM today - Current Medication List Current Medications: Active Medications Acetaminophen (Tylenol -) 650 mg PO Q6H PRN PRN Reason: PAIN LEVEL 1-5 Last Admin: 08/29/17 03:13 Dose: 650 mg Amino Acids (Prosource No Carb Liquid Pkt) 30 ml PO BID@0800,1730 [facility] Last Admin: 08/29/17 08:27 Dose: 30 ml Collagenase (Santyl -) 1 applic TP DAILY [facility] Last Admin: 08/29/17 12:35 Dose: 1 applic Gabapentin (Neurontin -) 300 mg PO TID [facility] Last Admin: 08/29/17 13:39 Dose: 300 mg Heparin Sodium (Porcine) (Heparin -) 5,000 unit SQ BID [facility] Last Admin: 08/29/17 09:36 Dose: 5,000 unit Piperacillin Sod/Tazobactam (Sod 3.375 gm/ Dextrose) 50 mls @ 100 mls/hr IVPB Q8H-IV [facility] PRN Reason: Protocol Last Admin: 08/29/17 09:29 Dose: 100 mls/hr Vancomycin HCl 750 mg/ (Dextrose) 250 mls @ 250 mls/hr IVPB Q12H [facility] Last Admin: 08/29/17 11:06 Dose: 250 mls/hr Iron Sucrose 100 mg/ Sodium (Chloride) 100 mls @ 200 mls/hr IVPB ONCE ONE Stop: 08/29/17 14:33 Lorazepam (Ativan -) 1 mg PO ONCE ONE Stop: 08/28/17 19:16 Multivitamins/Minerals/Vitamin C (Tab-A-Vit -) 1 tab PO DAILY [facility] Last Admin: 08/29/17 09:27 Dose: 1 tab Oxycodone HCl (Roxicodone -) 10 mg PO Q4H PRN PRN Reason: PAIN LEVEL 6-10 Last Admin: 08/29/17 12:04 Dose: 10 mg Polyethylene Glycol (Miralax (For Daily Use) -) 17 gm PO BID [facility] Last Admin: 08/29/17 09:28 Dose: 17 gm Rosuvastatin Calcium (Crestor -) 5 mg PO HS [facility] Last Admin: 08/28/17 21:19 Dose: 5 mg Tramadol HCl (Ultram -) 50 mg PO Q8H PRN PRN Reason: PAIN LEVEL 4 - 6 Last Admin: 08/29/17 08:26 Dose: 50 mg Zinc Sulfate (Orazinc -) 220 mg PO BID [facility] Last Admin: 08/29/17 09:27 Dose: 220 mg - Objective Vital Signs: Vital Signs Temperature 97.6 F 08/29/17 10:00 Pulse Rate 72 08/29/17 10:00 Respiratory Rate 18 08/29/17 10:00 Blood Pressure 114/72 08/29/17 10:00 O2 Sat by Pulse Oximetry (%) 98 08/29/17 09:00 Constitutional: Yes: Calm Cardiovascular: Yes: Regular Rate and Rhythm, S1, S2 Respiratory: Yes: CTA Bilaterally Gastrointestinal: Yes: Normal Bowel Sounds, Soft Extremities: Yes: Other (left BKA right foot 4 toe ulcer) Neurological: Yes: Alert, Oriented Labs: CBC, BMP 08/29/17 07:30 08/29/17 07:30 Problem List - Problems (1) Wound infection Assessment/Plan: abx vanco and zosyn ID and vascular on board isolation for MRSA Microbiology 08/26/17 12:36 Toe - Right Fourth Gram Stain - Final 08/26/17 12:36 Toe - Right Fourth Wound Culture - Final Mr Sosa Aureus to go for MRI today dvt ppx zinc sulfate Code(s): T14.8XXA - OTHER INJURY OF UNSPECIFIED BODY REGION, INITIAL ENCOUNTER; L08.9 - LOCAL INFECTION OF THE SKIN AND SUBCUTANEOUS TISSUE, UNSP (2) Foot pain Assessment/Plan: pain control and stool softners MRI pending - ativan to be given prior to MRI IV abx Code(s): M79.673 - PAIN IN UNSPECIFIED FOOT (3) Hypercholesteremia Assessment/Plan: crestor Code(s): E78.0 - PURE HYPERCHOLESTEROLEMIA * DO NOT USE * (4) Anemia Assessment/Plan: iron panel iv venofer h/h Code(s): D64.9 - ANEMIA, UNSPECIFIED Qualifiers: Anemia type: unspecified type Qualified Code(s): D64.9 - Anemia, unspecified
[2017-08-29] MEDS ORDERED: morphine SULFATE 4 MG/ML VIAL IVPUSH ONE (15:07)
--- NOTE | 2017-08-29 15:38 | PN ---
Teaching Attending Note Name of Resident: Willy Macedo ATTENDING PHYSICIAN STATEMENT I saw and evaluated the patient. I reviewed the resident's note and discussed the case with the resident. I agree with the resident's findings and plan as documented. SUBJECTIVE: doing well awaiting MRI pain in foot unchanged OBJECTIVE: Vital Signs Period Temp Pulse Resp BP Sys/Torres Pulse Ox Last 24 Hr 97.4 F-98.8 F 72-98 16-20 104-139/59-78 98-100 cor-rrr lungs clear foot unchanged, open ulcer, still very tender, still some swelling CBC, BMP 08/29/17 07:30 08/29/17 07:30 Microbiology 08/26/17 12:55 Blood - Peripheral Venous Blood Culture - Preliminary NO GROWTH OBTAINED AFTER 72 HOURS, INCUBATION TO CONTINUE FOR 2 DAYS. 08/26/17 12:55 Blood - Peripheral Venous Blood Culture - Preliminary NO GROWTH OBTAINED AFTER 72 HOURS, INCUBATION TO CONTINUE FOR 2 DAYS. 08/26/17 12:36 Toe - Right Fourth Gram Stain - Final 08/26/17 12:36 Toe - Right Fourth Wound Culture - Final Mr S Aureus Laboratory Tests 08/27/17 08/27/17 08/29/17 12:20 12:20 07:30 ESR 96 H C-Reactive Protein 8.7 H Random Vancomycin 21.234 ASSESSMENT AND PLAN: probable osteo vancomycin on hold due to high trough, repeat level in am before resuming PVD s/p amputation of toe s/p AKA Problem List - Problems (1) Wound infection Code(s): T14.8XXA - OTHER INJURY OF UNSPECIFIED BODY REGION, INITIAL ENCOUNTER; L08.9 - LOCAL INFECTION OF THE SKIN AND SUBCUTANEOUS TISSUE, UNSP (2) Osteomyelitis Code(s): M86.9 - OSTEOMYELITIS, UNSPECIFIED (3) Smoking Code(s): F17.200 - NICOTINE DEPENDENCE, UNSPECIFIED, UNCOMPLICATED
[2017-08-29] MEDS ORDERED: morphine SULFATE 4 MG/ML VIAL ONE (20:10)
[2017-08-29] MEDS: ROSUVASTATIN CA 5 MG TABLET (FP) PO SCH (23:50)
[2017-08-30] MEDS: oxyCODONE HCL 5 MG TABLET PO PRN ×5 (00:58→23:23)
[2017-08-30] MEDS: traMADol HCL 50 MG TABLET PO PRN ×2 (01:57→20:53)
[2017-08-30] MEDS: GABAPENTIN 300 MG CAPSULE (FP) PO SCH ×3 (05:36→23:23)
[2017-08-30] MEDS: AMINO ACIDS/PROTEIN HYDROLYS 30 ML LIQUID.PKT PO SCH (08:42)
[2017-08-30 08:44] LABS: BASO % 0.3 % (0-2.0); EOS % 0.7 % (0-4.5); HEMATOCRIT 27.2 % (35.4-49); HEMOGLOBIN 9.1 GM/dL (11.7-16.9); LYMPH % 9.5 % (8-40); MCH 33.3 pg (25.7-33.7); MCHC 33.5 g/dl (32.0-35.9); MEAN CELL VOLUME 99.4 fl (80-96); MEAN PLT VOLUME 8.9 fl (7.5-11.1); MONO % 4.7 % (3.8-10.2); NEUT % 84.8 % (42.8-82.8); PLATELET COUNT 201 K/MM3 (134-434); RBC 2.74 M/mm3 (4.00-5.60); RDW 15.3 % (11.9-15.9)
[2017-08-30] MEDS: ACETAMINOPHEN 325 MG TABLET (FP) PO PRN ×2 (09:00→16:28)
[2017-08-30 09:09] LABS: CHLORIDE 108 mmol/L (98-107); SODIUM 141 mmol/L (136-145)
[2017-08-30 09:15] LABS: ALBUMIN 3.4 g/dl (3.4-5.0); ALK PHOS 93 U/L (45-117); ANION GAP 6 (8-16); BILIRUBIN,TOTAL 0.6 mg/dL (0.2-1.0); BLOOD UREA NITROGEN 23 mg/dL (7-18); CO2 27 mmol/L (21-32); CREATININE 0.9 mg/dL (0.7-1.3); GLUCOSE,RANDOM 84 mg/dL (74-106); SGOT/AST 40 U/L (15-37); SGPT/ALT 29 U/L (12-78); TOT PROT 7.3 g/dl (6.4-8.2)
[2017-08-30] MEDS ORDERED: PT OWN MED DRAWER 7, Y5N ONE ×2 (10:05→17:53)
[2017-08-30] MEDS: MULTIVITAMINS (DAILY MVI) TABLET (FP) PO SCH (10:10)
[2017-08-30] MEDS: HEPARIN NA (PORCINE) 5,000 UNITS/ML 1ML VIAL SQ SCH ×2 (10:10→23:22)
[2017-08-30] MEDS: ZINC SULFATE 220 MG CAPSULE (FP) PO SCH ×2 (10:11→23:23)
[2017-08-30] MEDS: POLYETHYLENE GLYCOL 3350 119 GM BTL PO SCH ×2 (10:12→23:22)
[2017-08-30] MEDS: COLLAGENASE CLOSTRIDIUM HIST. 30 GRAMS TUBE TP SCH (10:12)
--- NOTE | 2017-08-30 11:20 | PN ---
Progress Note, Physician Chief Complaint: Wound infection History of Present Illness: C/O PAIN RIGHT FOOT Patient Name: Eric Santamaria Date: 1950 Address: [address] [place] [address] Sex: Male Rx Written Rx Dispensed Drug Quantity Days Supply Prescriber Name 08/22/2017 08/22/2017 oxycodone-acetaminophen 10-325 mg tab 120 30 Gilbert Guzman (DO) 04/28/2017 08/20/2017 tramadol hcl 50 mg tablet 60 30 FernandezIshan MD 07/17/2017 07/18/2017 endocet 5-325 tablet 60 15 Guzman, Gilbert Sosa (DO) 04/28/2017 07/16/2017 tramadol hcl 50 mg tablet 60 30 Fernandez, Ishan TURCIOS 04/28/2017 06/18/2017 tramadol hcl 50 mg tablet 60 30 Fernandez, Ishan TURCIOS 06/13/2017 06/14/2017 endocet 5-325 tablet 20 5 Armand Schaefer () 04/28/2017 04/28/2017 tramadol hcl 50 mg tablet 60 30 Fernandez, Ishan TURCIOS 12/30/2016 03/19/2017 tramadol hcl 50 mg tablet 21 7 Gerald, Alma Delia 12/30/2016 02/17/2017 tramadol hcl 50 mg tablet 21 7 Gerald, Alma Delia 12/30/2016 01/23/2017 tramadol hcl 50 mg tablet 21 7 Gerald, Alma Delia 12/30/2016 12/30/2016 tramadol hcl 50 mg tablet 21 7 Gerald, Alma Delia 08/22/2016 09/03/2016 endocet 5-325 tablet 120 30 GuzmanGilebrt bustamante (DO) Awaiting MRI of lower extremity right to r/o osteo Seen by ID MINDY Chris positive - Current Medication List Current Medications: Active Medications Acetaminophen (Tylenol -) 650 mg PO Q6H PRN PRN Reason: PAIN LEVEL 1-5 Last Admin: 08/30/17 09:00 Dose: 650 mg Amino Acids (Prosource No Carb Liquid Pkt) 30 ml PO BID@0800,1730 [facility] Last Admin: 08/30/17 08:42 Dose: 30 ml Collagenase (Santyl -) 1 applic TP DAILY [facility] Last Admin: 08/30/17 10:12 Dose: 1 applic Gabapentin (Neurontin -) 300 mg PO TID [facility] Last Admin: 08/30/17 05:36 Dose: 300 mg Heparin Sodium (Porcine) (Heparin -) 5,000 unit SQ BID [facility] Last Admin: 08/30/17 10:10 Dose: 5,000 unit Multivitamins/Minerals/Vitamin C (Tab-A-Vit -) 1 tab PO DAILY [facility] Last Admin: 08/30/17 10:10 Dose: 1 tab Oxycodone HCl (Roxicodone -) 10 mg PO Q4H PRN PRN Reason: PAIN LEVEL 6-10 Last Admin: 08/30/17 09:00 Dose: 10 mg Polyethylene Glycol (Miralax (For Daily Use) -) 17 gm PO BID [facility] Last Admin: 08/30/17 10:12 Dose: Not Given Rosuvastatin Calcium (Crestor -) 5 mg PO HS [facility] Last Admin: 08/29/17 23:50 Dose: 5 mg Tramadol HCl (Ultram -) 50 mg PO Q8H PRN PRN Reason: PAIN LEVEL 4 - 6 Last Admin: 08/30/17 01:57 Dose: 50 mg Zinc Sulfate (Orazinc -) 220 mg PO BID [facility] Last Admin: 08/30/17 10:11 Dose: 220 mg - Objective Vital Signs: Vital Signs Temperature 97.4 F L 08/30/17 06:00 Pulse Rate 79 08/30/17 06:00 Respiratory Rate 18 08/30/17 06:00 Blood Pressure 137/87 08/30/17 06:00 O2 Sat by Pulse Oximetry (%) 98 08/29/17 21:00 Constitutional: Yes: No Distress, Calm, Cachectic Cardiovascular: Yes: Regular Rate and Rhythm Respiratory: Yes: Regular Gastrointestinal: Yes: Normal Bowel Sounds, Soft Edema: No Neurological: Yes: Alert, Oriented Psychiatric: Yes: Alert, Oriented Labs: CBC, BMP 08/30/17 08:00 08/30/17 08:00 Problem List - Problems (1) Cellulitis of right foot Assessment/Plan: -ID consult -IV abx -Pain management- HCS checked -add tramadol and gabapentin -ESR, CRP trending down -Awaiting MRI RLE to r/o osteo Code(s): L03.115 - CELLULITIS OF RIGHT LOWER LIMB (2) Peripheral arterial disease Code(s): I73.9 - PERIPHERAL VASCULAR DISEASE, UNSPECIFIED (3) CAD (coronary artery disease) Assessment/Plan: -statin -asa 81 Code(s): I25.10 - ATHSCL HEART DISEASE OF [place] CORONARY ARTERY W/O ANG PCTRS (4) Anemia Assessment/Plan: -guaiac positive -iron deficiency -GI consult -venofer today -b12 extremely low -daily cyanocobalamin injections -monitor trend with normal transfusion parameters Code(s): D64.9 - ANEMIA, UNSPECIFIED Qualifiers: Anemia type: unspecified type Qualified Code(s): D64.9 - Anemia, unspecified (5) Severe malnutrition Assessment/Plan: -promote healing: -add ensure BID -prosource BID -Vitamin C 1000 mg po daily -Zinc 250 mg po BID Code(s): E43 - UNSPECIFIED SEVERE PROTEIN-CALORIE MALNUTRITION Assessment/Plan see problem list
[2017-08-30] MEDS ORDERED: IRON SUCROSE INJECTION 300 MG in SODIUM CHLORIDE 235 ML IVPB ONE (11:25)
[2017-08-30 12:39] VITALS: BMI 15.6
[2017-08-30] MEDS: ASCORBIC ACID 500 MG TABLET (FP) PO SCH (13:02)
[2017-08-30] MEDS: ASPIRIN 81 MG CHEWABLE TABLETS PO SCH (13:02)
[2017-08-30] MEDS: CYANOCOBALAMIN (VITAMIN B-12) 1000 MCG/1 ML VIAL IM SCH (13:02)
--- NOTE | 2017-08-30 16:35 | PN ---
Progress Note (short form) - Note Progress Note: no new complaints awaiting MRI reading Vital Signs Period Temp Pulse Resp BP Sys/Torres Pulse Ox Last 24 Hr 97.3 F-97.7 F 79-105 18-18 107-137/64-87 98-98 cor-rrr lungs clear abd soft,nt ext unchanged- left aka right ulcer with surrounding tenderness CBC, BMP 08/30/17 08:00 08/30/17 08:00 Laboratory Tests 08/27/17 08/27/17 08/29/17 12:20 12:20 07:30 ESR 96 H C-Reactive Protein 8.7 H Random Vancomycin 21.234 08/30/17 08:00 ESR C-Reactive Protein Random Vancomycin 14.254 a/p probable osteo- MRSA s/p amputation of the toe PVD will resume vancomycin f/u MRI Problem List - Problems (1) Wound infection Code(s): T14.8XXA - OTHER INJURY OF UNSPECIFIED BODY REGION, INITIAL ENCOUNTER; L08.9 - LOCAL INFECTION OF THE SKIN AND SUBCUTANEOUS TISSUE, UNSP (2) Osteomyelitis Code(s): M86.9 - OSTEOMYELITIS, UNSPECIFIED (3) Smoking Code(s): F17.200 - NICOTINE DEPENDENCE, UNSPECIFIED, UNCOMPLICATED
[2017-08-30] MEDS: VANCOMYCIN 750 MG in DEXTROSE 5%-WATER - 250 ML IVPB SCH (18:27)
[2017-08-30] MEDS: ROSUVASTATIN CA 5 MG TABLET (FP) PO SCH (23:23)
[2017-08-31] MEDS: oxyCODONE HCL 5 MG TABLET PO PRN ×4 (04:36→23:53)
[2017-08-31] MEDS: GABAPENTIN 300 MG CAPSULE (FP) PO SCH ×3 (06:51→22:28)
[2017-08-31] MEDS ORDERED: PT OWN MED DRAWER 7, Y5N ONE ×4 (09:05→22:16)
[2017-08-31] MEDS: CYANOCOBALAMIN (VITAMIN B-12) 1000 MCG/1 ML VIAL IM SCH (10:14)
[2017-08-31] MEDS: ASCORBIC ACID 500 MG TABLET (FP) PO SCH (10:15)
[2017-08-31] MEDS: ASPIRIN 81 MG CHEWABLE TABLETS PO SCH (10:15)
[2017-08-31] MEDS: HEPARIN NA (PORCINE) 5,000 UNITS/ML 1ML VIAL SQ SCH ×2 (10:15→22:28)
[2017-08-31] MEDS: MULTIVITAMINS (DAILY MVI) TABLET (FP) PO SCH (10:15)
[2017-08-31] MEDS: ZINC SULFATE 220 MG CAPSULE (FP) PO SCH ×2 (10:15→22:28)
[2017-08-31] MEDS: COLLAGENASE CLOSTRIDIUM HIST. 30 GRAMS TUBE TP SCH (10:16)
[2017-08-31] MEDS: POLYETHYLENE GLYCOL 3350 119 GM BTL PO SCH ×2 (10:21→23:45)
--- NOTE | 2017-08-31 11:10 | PN ---
Progress Note, Physician Chief Complaint: Wound infection History of Present Illness: C/O PAIN RIGHT FOOT Patient Name: Eric Santamaria Date: 1950 Address: [address] [place] [address] Sex: Male Rx Written Rx Dispensed Drug Quantity Days Supply Prescriber Name 08/22/2017 08/22/2017 oxycodone-acetaminophen 10-325 mg tab 120 30 Gilbert Guzman (DO) 04/28/2017 08/20/2017 tramadol hcl 50 mg tablet 60 30 FernandezIshan MD 07/17/2017 07/18/2017 endocet 5-325 tablet 60 15 Guzman, Gilbert S (DO) 04/28/2017 07/16/2017 tramadol hcl 50 mg tablet 60 30 Fernandez, Ishan TURCIOS 04/28/2017 06/18/2017 tramadol hcl 50 mg tablet 60 30 Fernandez, Ishan TURCIOS 06/13/2017 06/14/2017 endocet 5-325 tablet 20 5 Armand Schaefer () 04/28/2017 04/28/2017 tramadol hcl 50 mg tablet 60 30 Fernandez, Ishan TURCIOS 12/30/2016 03/19/2017 tramadol hcl 50 mg tablet 21 7 Gerald, Alma Delia 12/30/2016 02/17/2017 tramadol hcl 50 mg tablet 21 7 Gerald, Alma Delia 12/30/2016 01/23/2017 tramadol hcl 50 mg tablet 21 7 Gerald, Alma Delia 12/30/2016 12/30/2016 tramadol hcl 50 mg tablet 21 7 Gerald, Alma Delia 08/22/2016 09/03/2016 endocet 5-325 tablet 120 30 Gilbert Guzman (DO) Seen by ID IV abx Guaiac positive Dr Santos to see patient Friday MRI RLE: Osteomyelitis is identified involving the fourth metatarsal bone and the base of the proximal phalanx of the fourth digit. There is been apparent amputation of the remainder of the fourth digit. Additional possible additional sites of osteomyelitis are noted involving the fifth metatarsal bone and fifth digit fractures versus representing reactive marrow edema). A 2 x 1 x 1 cm fluid structure is seen interposed between the fourth and fifth metatarsal bones/ digits which which could represent an abscess versus a distended intermetatarsal bursa. The mid and distal phalanges of the first, second, third and fifth digits are not well visualized due to persistent motion artifact. There is equivocal marrow edema involving those digits. If clinically indicated correlate with follow-up MRI. - Current Medication List Current Medications: Active Medications Acetaminophen (Tylenol -) 650 mg PO Q6H PRN PRN Reason: PAIN LEVEL 1-5 Last Admin: 08/30/17 16:28 Dose: 650 mg Ascorbic Acid (Vitamin C -) 1,000 mg PO DAILY [facility] Last Admin: 08/31/17 10:15 Dose: 1,000 mg Aspirin (Asa -) 81 mg PO DAILY [facility] Last Admin: 08/31/17 10:15 Dose: 81 mg Collagenase (Santyl -) 1 applic TP DAILY [facility] Last Admin: 08/31/17 10:16 Dose: 1 applic Cyanocobalamin (Vitamin B12 Injection -) 1,000 mcg IM DAILY [facility] Last Admin: 08/31/17 10:14 Dose: 1,000 mcg Gabapentin (Neurontin -) 300 mg PO TID [facility] Last Admin: 08/31/17 06:51 Dose: 300 mg Heparin Sodium (Porcine) (Heparin -) 5,000 unit SQ BID [facility] Last Admin: 08/31/17 10:15 Dose: 5,000 unit Vancomycin HCl 750 mg/ (Dextrose) 250 mls @ 250 mls/hr IVPB DAILY@1700 [facility] PRN Reason: Protocol Last Admin: 08/30/17 18:27 Dose: 250 mls/hr Multivitamins/Minerals/Vitamin C (Tab-A-Vit -) 1 tab PO DAILY [facility] Last Admin: 08/31/17 10:15 Dose: 1 tab Oxycodone HCl (Roxicodone -) 10 mg PO Q4H PRN PRN Reason: PAIN LEVEL 6-10 Last Admin: 08/31/17 10:31 Dose: 10 mg Polyethylene Glycol (Miralax (For Daily Use) -) 17 gm PO BID [facility] Last Admin: 08/31/17 10:21 Dose: Not Given Rosuvastatin Calcium (Crestor -) 5 mg PO HS [facility] Last Admin: 08/30/17 23:23 Dose: 5 mg Tramadol HCl (Ultram -) 50 mg PO Q8H PRN PRN Reason: PAIN LEVEL 4 - 6 Last Admin: 08/30/17 20:53 Dose: 50 mg Zinc Sulfate (Orazinc -) 220 mg PO BID [facility] Last Admin: 08/31/17 10:15 Dose: 220 mg - Objective Vital Signs: Vital Signs Temperature 98.2 F 08/31/17 06:00 Pulse Rate 91 H 08/31/17 06:00 Respiratory Rate 20 08/31/17 06:00 Blood Pressure 113/70 08/31/17 06:00 O2 Sat by Pulse Oximetry (%) 97 08/30/17 21:00 Constitutional: Yes: Well Nourished, No Distress, Calm Cardiovascular: Yes: Regular Rate and Rhythm Respiratory: Yes: Regular Gastrointestinal: Yes: Normal Bowel Sounds, Soft Extremities: Yes: Amputation (LLE) Edema: No Neurological: Yes: Alert, Oriented Psychiatric: Yes: Alert, Oriented Labs: CBC, BMP 08/30/17 08:00 08/30/17 08:00 Problem List - Problems (1) Cellulitis of right foot Assessment/Plan: -ID consult -IV abx -Pain management- HCS checked -add tramadol and gabapentin -ESR, CRP trending down -MRI RLE to r/o osteo: Osteomyelitis is identified involving the fourth metatarsal bone and the base of the proximal phalanx of the fourth digit. There is been apparent amputation of the remainder of the fourth digit. Additional possible additional sites of osteomyelitis are noted involving the fifth metatarsal bone and fifth digit fractures versus representing reactive marrow edema). A 2 x 1 x 1 cm fluid structure is seen interposed between the fourth and fifth metatarsal bones/ digits which which could represent an abscess versus a distended intermetatarsal bursa. The mid and distal phalanges of the first, second, third and fifth digits are not well visualized due to persistent motion artifact. There is equivocal marrow edema involving those digits. If clinically indicated correlate with follow-up MRI. -PICC line depending on how long ID plans to continue abx Code(s): L03.115 - CELLULITIS OF RIGHT LOWER LIMB (2) Peripheral arterial disease Code(s): I73.9 - PERIPHERAL VASCULAR DISEASE, UNSPECIFIED (3) CAD (coronary artery disease) Assessment/Plan: -statin -asa 81 Code(s): I25.10 - ATHSCL HEART DISEASE OF [place] CORONARY ARTERY W/O ANG PCTRS (4) Anemia Assessment/Plan: -guaiac positive -iron deficiency -GI consult -venofer yesterday -b12 extremely low -daily cyanocobalamin injections -monitor trend with normal transfusion parameters -CEA elevated Code(s): D64.9 - ANEMIA, UNSPECIFIED Qualifiers: Anemia type: unspecified type Qualified Code(s): D64.9 - Anemia, unspecified (5) Severe malnutrition Assessment/Plan: -promote healing: -add ensure TID -prosource BID -magic cup -Vitamin C 1000 mg po daily -Zinc 250 mg po BID Code(s): E43 - UNSPECIFIED SEVERE PROTEIN-CALORIE MALNUTRITION Assessment/Plan see problem list
[2017-08-31] MEDS: traMADol HCL 50 MG TABLET PO PRN ×2 (11:53→22:28)
[2017-08-31] MEDS: VANCOMYCIN 750 MG in DEXTROSE 5%-WATER - 250 ML IVPB SCH (16:28)
--- NOTE | 2017-08-31 20:05 | CON.GI ---
Consult Consult Specialty:: GI Referred by:: RYAN Sanchez - History of Present Illness History of Present Illness: 67 y/o male with PMH colon cancer, severe PVD was admitted with osteomyletis. He was noted to have anemia and guaiac positive stool. He has frequent bowel movements. His last colonoscopy was 2014, there were no evidence of recurrence. He claims to have black stool but this ws note witnessed by nursing staff. He was advised to call the nurse on the next bowel movement. - Past Medical History Cardio/Vascular: Yes: Hyperlipdemia. No: AFIB, Aneurysm, Aortic Insufficiency, Aortic Stenosis, CAD, CHF, Deep Vein Thrombosis, HTN, CO, Mitral Insufficiency, Mitral Stenosis, Murmur, Pulmonary Hypertension, Other Gastrointestinal: Yes: Cancer (colon), GI Bleed. 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 [Santyl] 1 applic TP DAILY #1 oint...g. 06/18/17 Albuterol 0.083% Nebulizer Ni [Ventolin 0.083% Nebulizer Soln -] 1 amp NEB PRN 07/30/17 Becaplermin [Regranex] 15 gm TP DAILY #1 gel..gram. 08/22/17 Oxycodone HCl/Acetaminophen [Percocet 10-325 mg Tablet] 1 each PO QID #120 tablet MDD 4 08/22/17 Family Disease History - Family Disease History Family Disease History: Other: Father (Sickle Cell Trait) Physical Exam-GI Vital Signs: Vital Signs Temperature 98.0 F 08/31/17 18:00 Pulse Rate 105 H 08/31/17 18:00 Respiratory Rate 20 08/31/17 18:00 Blood Pressure 111/71 08/31/17 18:00 O2 Sat by Pulse Oximetry (%) 97 08/31/17 09:00 Constitutional: Yes: No Distress Eyes: Yes: Conjunctiva Clear HENT: Yes: Atraumatic Labs: CBC, BMP 08/30/17 08:00 08/30/17 08:00 Hepatic Panel Total Bilirubin 0.6 mg/dL (0.2-1.0) 08/30/17 08:00 AST 40 U/L (15-37) H D 08/30/17 08:00 ALT 29 U/L (12-78) D 08/30/17 08:00 Alkaline Phosphatase 93 U/L (45-117) 08/30/17 08:00 Albumin 3.4 g/dl (3.4-5.0) 08/30/17 08:00 Current Medications Acetaminophen (Tylenol -) 650 mg PO Q6H PRN PRN Reason: PAIN LEVEL 1-5 Last Admin: 08/30/17 16:28 Dose: 650 mg Ascorbic Acid (Vitamin C -) 1,000 mg PO DAILY [facility] Last Admin: 08/31/17 10:15 Dose: 1,000 mg Aspirin (Asa -) 81 mg PO DAILY [facility] Last Admin: 08/31/17 10:15 Dose: 81 mg Collagenase (Santyl -) 1 applic TP DAILY [facility] Last Admin: 08/31/17 10:16 Dose: 1 applic Cyanocobalamin (Vitamin B12 Injection -) 1,000 mcg IM DAILY [facility] Last Admin: 08/31/17 10:14 Dose: 1,000 mcg Gabapentin (Neurontin -) 300 mg PO TID [facility] Last Admin: 08/31/17 13:45 Dose: 300 mg Heparin Sodium (Porcine) (Heparin -) 5,000 unit SQ BID [facility] Last Admin: 08/31/17 10:15 Dose: 5,000 unit Vancomycin HCl 750 mg/ (Dextrose) 250 mls @ 250 mls/hr IVPB DAILY@[facility]00 [facility] PRN Reason: Protocol Last Admin: 08/31/17 16:28 Dose: 250 mls/hr Multivitamins/Minerals/Vitamin C (Tab-A-Vit -) 1 tab PO DAILY [facility] Last Admin: 08/31/17 10:15 Dose: 1 tab Oxycodone HCl (Roxicodone -) 10 mg PO Q4H PRN PRN Reason: PAIN LEVEL 6-10 Last Admin: 08/31/17 19:25 Dose: 10 mg Polyethylene Glycol (Miralax (For Daily Use) -) 17 gm PO BID [facility] Last Admin: 08/31/17 10:21 Dose: Not Given Rosuvastatin Calcium (Crestor -) 5 mg PO HS [facility] Last Admin: 08/30/17 23:23 Dose: 5 mg Tramadol HCl (Ultram -) 50 mg PO Q8H PRN PRN Reason: PAIN LEVEL 4 - 6 Last Admin: 08/31/17 11:53 Dose: 50 mg Zinc Sulfate (Orazinc -) 220 mg PO BID [facility] Last Admin: 08/31/17 10:15 Dose: 220 mg Home Medications Medication Instructions Recorded Albuterol Sulfate [Proair Hfa -] 1 puff IH Q4H PRN 04/25/15 Folic Acid 1 mg PO DAILY 05/23/17 Tramadol HCl 50 mg PO PRN PRN 05/23/17 Clopidogrel Bisulfate [Plavix] 75 mg PO DAILY #30 tablet 05/29/17 Collagenase Clostridium Hist. 1 applic TP DAILY #1 oint...g. 06/18/17 [Santyl] Albuterol 0.083% Nebulizer Ni 1 amp NEB PRN 07/30/17 [Ventolin 0.083% Nebulizer Soln -] Becaplermin [Regranex] 15 gm TP DAILY #1 gel..gram. 08/22/17 Oxycodone HCl/Acetaminophen 1 each PO QID #120 tablet MDD 4 08/22/17 [Percocet 10-325 mg Tablet] Problem List - Problems (1) Occult GI bleeding Assessment/Plan: R> Protonix 40mg daily serial CBC type and hold will need EGD and colonoscopy on ce medical cleared Code(s): R19.5 - OTHER FECAL ABNORMALITIES
[2017-08-31] MEDS: ROSUVASTATIN CA 5 MG TABLET (FP) PO SCH (22:28)
[2017-09-01] MEDS: oxyCODONE HCL 5 MG TABLET PO PRN ×4 (04:50→23:02)
[2017-09-01] MEDS: ACETAMINOPHEN 325 MG TABLET (FP) PO PRN (05:39)
[2017-09-01] MEDS: GABAPENTIN 300 MG CAPSULE (FP) PO SCH ×3 (05:39→21:45)
[2017-09-01] MEDS: traMADol HCL 50 MG TABLET PO PRN ×2 (07:46→17:08)
[2017-09-01 08:14] LABS: BASO % 0.3 % (0-2.0); EOS % 1.1 % (0-4.5); HEMATOCRIT 23.9 % (35.4-49); HEMOGLOBIN 8.1 GM/dL (11.7-16.9); LYMPH % 12.1 % (8-40); MCH 33.9 pg (25.7-33.7); MEAN CELL VOLUME 99.6 fl (80-96); MEAN PLT VOLUME 8.6 fl (7.5-11.1); NEUT % 77.5 % (42.8-82.8); PLATELET COUNT 193 K/MM3 (134-434); RDW 14.8 % (11.9-15.9); WHITE BLOOD COUNT 8.5 K/mm3 (4.0-10.0)
[2017-09-01 08:42] LABS: CHLORIDE 112 mmol/L (98-107); POTASSIUM 4.7 mmol/L (3.5-5.1); SODIUM 145 mmol/L (136-145)
[2017-09-01 08:52] LABS: ALBUMIN 3.1 g/dl (3.4-5.0); ALK PHOS 89 U/L (45-117); ANION GAP 6 (8-16); BILIRUBIN,TOTAL 0.5 mg/dL (0.2-1.0); BLOOD UREA NITROGEN 21 mg/dL (7-18); CALCIUM 8.8 mg/dL (8.5-10.1); CO2 27 mmol/L (21-32); CREATININE 0.9 mg/dL (0.7-1.3); GLUCOSE,RANDOM 89 mg/dL (74-106); SGOT/AST 38 U/L (15-37); SGPT/ALT 30 U/L (12-78); TOT PROT 6.9 g/dl (6.4-8.2)
[2017-09-01] MEDS ORDERED: PICC LINE 8 ML FLUSH PROTOCOL IVPUSH PRN (10:22)
--- NOTE | 2017-09-01 10:27 | PN ---
Progress Note (short form) - Note Progress Note: no new complaints MRI with osteo- small collection- reviewed with Dr Guzman, no plans for surgery at this time Vital Signs Period Temp Pulse Resp BP Sys/Torres Pulse Ox Last 24 Hr 97.9 F-98.9 F 90-109 18-20 110-130/60-73 98 cor-rrr lungs clear abd soft,nt ext unchanged CBC, BMP 09/01/17 08:00 09/01/17 08:00 Laboratory Tests 08/27/17 08/27/17 08/29/17 12:20 12:20 07:30 ESR 96 H C-Reactive Protein 8.7 H Random Vancomycin 21.234 08/30/17 08:00 ESR C-Reactive Protein Random Vancomycin 14.254 a/p osteomyelitis- MRSA s/p amputation of the toe PVD continue vancomycin picc line for LT iv antibiotics check vancomycin trough today Problem List - Problems (1) Wound infection Code(s): T14.8XXA - OTHER INJURY OF UNSPECIFIED BODY REGION, INITIAL ENCOUNTER; L08.9 - LOCAL INFECTION OF THE SKIN AND SUBCUTANEOUS TISSUE, UNSP (2) Osteomyelitis Code(s): M86.9 - OSTEOMYELITIS, UNSPECIFIED (3) Smoking Code(s): F17.200 - NICOTINE DEPENDENCE, UNSPECIFIED, UNCOMPLICATED
--- NOTE | 2017-09-01 10:40 | PN ---
Progress Note, Physician Chief Complaint: patient had dark stool guaicic positive seen by GI started on protonix monitor CBC needs picc line for jail iv abx for osteo patient was constipated had BM - Current Medication List Current Medications: Active Medications Acetaminophen (Tylenol -) 650 mg PO Q6H PRN PRN Reason: PAIN LEVEL 1-5 Last Admin: 09/01/17 05:39 Dose: 650 mg Ascorbic Acid (Vitamin C -) 1,000 mg PO DAILY [facility] Last Admin: 08/31/17 10:15 Dose: 1,000 mg Aspirin (Asa -) 81 mg PO DAILY [facility] Last Admin: 08/31/17 10:15 Dose: 81 mg Collagenase (Santyl -) 1 applic TP DAILY [facility] Last Admin: 08/31/17 10:16 Dose: 1 applic Cyanocobalamin (Vitamin B12 Injection -) 1,000 mcg IM DAILY [facility] Last Admin: 08/31/17 10:14 Dose: 1,000 mcg Gabapentin (Neurontin -) 300 mg PO TID [facility] Last Admin: 09/01/17 05:39 Dose: 300 mg Heparin Sodium (Porcine) (Heparin -) 5,000 unit SQ BID [facility] Last Admin: 08/31/17 22:28 Dose: 5,000 unit IV Flush (Picc Line Flush) 8 ml IVPUSH PRN PRN PRN Reason: Protocol Vancomycin HCl 750 mg/ (Dextrose) 250 mls @ 250 mls/hr IVPB DAILY@1700 [facility] PRN Reason: Protocol Last Admin: 08/31/17 16:28 Dose: 250 mls/hr Multivitamins/Minerals/Vitamin C (Tab-A-Vit -) 1 tab PO DAILY [facility] Last Admin: 08/31/17 10:15 Dose: 1 tab Oxycodone HCl (Roxicodone -) 10 mg PO Q4H PRN PRN Reason: PAIN LEVEL 6-10 Last Admin: 09/01/17 04:50 Dose: 10 mg Pantoprazole Sodium (Protonix -) 40 mg PO DAILY [facility] Polyethylene Glycol (Miralax (For Daily Use) -) 17 gm PO BID [facility] Last Admin: 08/31/17 23:45 Dose: Not Given Rosuvastatin Calcium (Crestor -) 5 mg PO HS [facility] Last Admin: 08/31/17 22:28 Dose: 5 mg Tramadol HCl (Ultram -) 50 mg PO Q8H PRN PRN Reason: PAIN LEVEL 4 - 6 Last Admin: 09/01/17 07:46 Dose: 50 mg Zinc Sulfate (Orazinc -) 220 mg PO BID [facility] Last Admin: 08/31/17 22:28 Dose: 220 mg - Objective Vital Signs: Vital Signs Temperature 98.1 F 09/01/17 06:00 Pulse Rate 93 H 09/01/17 06:00 Respiratory Rate 18 09/01/17 06:00 Blood Pressure 130/60 09/01/17 06:00 O2 Sat by Pulse Oximetry (%) 98 08/31/17 21:00 Constitutional: Yes: Calm Neck: Yes: Trachea Midline Cardiovascular: Yes: Regular Rate and Rhythm, S1, S2 Respiratory: Yes: CTA Bilaterally Gastrointestinal: Yes: Normal Bowel Sounds, Soft Extremities: Yes: Other (left BKA right foot fourth toe wound) Neurological: Yes: Alert, Oriented Labs: CBC, BMP 09/01/17 08:00 09/01/17 08:00 Problem List - Problems (1) Anemia Assessment/Plan: b12 and iron deficiency b12 injections guaicic positive stools GI saw patient PPI started will monitor h/h and recheck stools got iv venofer on friday if h/h drops further < 8 will need transfusion Code(s): D64.9 - ANEMIA, UNSPECIFIED Qualifiers: Anemia type: B12 deficiency (2) Wound infection Assessment/Plan: abx vanco -mRI noted for osteo of fourth toe picc line will be placed once ready for discharge ID and vascular on board isolation for MRSA Microbiology 08/26/17 12:36 Toe - Right Fourth Gram Stain - Final 08/26/17 12:36 Toe - Right Fourth Wound Culture - Final 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 iv abx dvt ppx zinc sulfate, collagenase Code(s): T14.8XXA - OTHER INJURY OF UNSPECIFIED BODY REGION, INITIAL ENCOUNTER; L08.9 - LOCAL INFECTION OF THE SKIN AND SUBCUTANEOUS TISSUE, UNSP (3) Foot pain Assessment/Plan: pain control and stool softners MRI shows osteo piccl ine to be placed once ready for discharge IV ab vancomycin for MRSA Microbiology 08/26/17 12:36 Toe - Right Fourth Gram Stain - Final 08/26/17 12:36 Toe - Right Fourth Wound Culture - Final S Aureus Code(s): M79.673 - PAIN IN UNSPECIFIED FOOT (4) Hypercholesteremia Assessment/Plan: [facility] Code(s): E78.0 - PURE HYPERCHOLESTEROLEMIA * DO NOT USE * Assessment/Plan recheck cbc later today if further drop then will need egd/colonscopy and transfusion prior to discharge
[2017-09-01] MEDS: CYANOCOBALAMIN (VITAMIN B-12) 1000 MCG/1 ML VIAL IM SCH (11:03)
[2017-09-01] MEDS: ZINC SULFATE 220 MG CAPSULE (FP) PO SCH ×2 (11:03→21:46)
[2017-09-01] MEDS: HEPARIN NA (PORCINE) 5,000 UNITS/ML 1ML VIAL SQ SCH (11:04)
[2017-09-01] MEDS: ASCORBIC ACID 500 MG TABLET (FP) PO SCH (11:04)
[2017-09-01] MEDS: ASPIRIN 81 MG CHEWABLE TABLETS PO SCH (11:04)
[2017-09-01] MEDS: PANTOPRAZOLE 40 MG TABLET (FP) PO SCH (11:04)
[2017-09-01] MEDS: MULTIVITAMINS (DAILY MVI) TABLET (FP) PO SCH (11:06)
[2017-09-01] MEDS: COLLAGENASE CLOSTRIDIUM HIST. 30 GRAMS TUBE TP SCH (11:06)
[2017-09-01] MEDS: POLYETHYLENE GLYCOL 3350 119 GM BTL PO SCH (11:28)
--- NOTE | 2017-09-01 14:11 | PN ---
Progress Note, Physician History of Present Illness: seen and examined. No signs of ongoing, significnat GI bleeding reported. Pt reports melanotic stools however. - Current Medication List Current Medications: Active Medications Acetaminophen (Tylenol -) 650 mg PO Q6H PRN PRN Reason: PAIN LEVEL 1-5 Last Admin: 09/01/17 05:39 Dose: 650 mg Ascorbic Acid (Vitamin C -) 1,000 mg PO DAILY [facility] Last Admin: 09/01/17 11:04 Dose: 1,000 mg Aspirin (Asa -) 81 mg PO DAILY [facility] Last Admin: 09/01/17 11:04 Dose: 81 mg Collagenase (Santyl -) 1 applic TP DAILY [facility] Last Admin: 09/01/17 11:06 Dose: 1 applic Cyanocobalamin (Vitamin B12 Injection -) 1,000 mcg IM DAILY [facility] Last Admin: 09/01/17 11:03 Dose: 1,000 mcg Gabapentin (Neurontin -) 300 mg PO TID [facility] Last Admin: 09/01/17 05:39 Dose: 300 mg Heparin Sodium (Porcine) (Heparin -) 5,000 unit SQ BID [facility] Last Admin: 09/01/17 11:04 Dose: 5,000 unit IV Flush (Picc Line Flush) 8 ml IVPUSH PRN PRN PRN Reason: Protocol Vancomycin HCl 750 mg/ (Dextrose) 250 mls @ 250 mls/hr IVPB DAILY@1700 [facility] PRN Reason: Protocol Last Admin: 08/31/17 16:28 Dose: 250 mls/hr Multivitamins/Minerals/Vitamin C (Tab-A-Vit -) 1 tab PO DAILY [facility] Last Admin: 09/01/17 11:06 Dose: 1 tab Oxycodone HCl (Roxicodone -) 10 mg PO Q4H PRN PRN Reason: PAIN LEVEL 6-10 Last Admin: 09/01/17 11:04 Dose: 10 mg Pantoprazole Sodium (Protonix -) 40 mg PO DAILY [facility] Last Admin: 09/01/17 11:04 Dose: 40 mg Polyethylene Glycol (Miralax (For Daily Use) -) 17 gm PO DAILY [facility] Rosuvastatin Calcium (Crestor -) 5 mg PO HS [facility] Last Admin: 08/31/17 22:28 Dose: 5 mg Tramadol HCl (Ultram -) 50 mg PO Q8H PRN PRN Reason: PAIN LEVEL 4 - 6 Last Admin: 09/01/17 07:46 Dose: 50 mg Zinc Sulfate (Orazinc -) 220 mg PO BID [facility] Last Admin: 09/01/17 11:03 Dose: 220 mg - Objective Vital Signs: Vital Signs Temperature 98.1 F 09/01/17 06:00 Pulse Rate 93 H 09/01/17 06:00 Respiratory Rate 18 09/01/17 06:00 Blood Pressure 130/60 09/01/17 06:00 O2 Sat by Pulse Oximetry (%) 98 08/31/17 21:00 Constitutional: Yes: Calm, Thin Gastrointestinal: Yes: Normal Bowel Sounds, Soft. No: Ascites, Distention, Melena, Tenderness, Vomiting Neurological: Yes: Alert, Oriented Labs: CBC, BMP 09/01/17 08:00 09/01/17 08:00 Laboratory Last Values WBC 8.5 K/mm3 (4.0-10.0) 09/01/17 08:00 RBC 2.40 M/mm3 (4.00-5.60) L 09/01/17 08:00 Hgb 8.1 GM/dL (11.7-16.9) L D 09/01/17 08:00 Hct 23.9 % (35.4-49) L 09/01/17 08:00 MCV 99.6 fl (80-96) H 09/01/17 08:00 MCH 33.9 pg (25.7-33.7) H 09/01/17 08:00 MCHC 34.0 g/dl (32.0-35.9) 09/01/17 08:00 RDW 14.8 % (11.9-15.9) 09/01/17 08:00 Plt Count 193 K/MM3 (134-434) 09/01/17 08:00 MPV 8.6 fl (7.5-11.1) 09/01/17 08:00 Neutrophils % 77.5 % (42.8-82.8) 09/01/17 08:00 Lymphocytes % 12.1 % (8-40) D 09/01/17 08:00 Monocytes % 9.0 % (3.8-10.2) D 09/01/17 08:00 Eosinophils % 1.1 % (0-4.5) 09/01/17 08:00 Basophils % 0.3 % (0-2.0) 09/01/17 08:00 ESR 86 mm/hr (0-20) H 08/29/17 07:30 Sodium 145 mmol/L (136-145) 09/01/17 08:00 Potassium 4.7 mmol/L (3.5-5.1) 09/01/17 08:00 Chloride 112 mmol/L (98-107) H 09/01/17 08:00 Carbon Dioxide 27 mmol/L (21-32) 09/01/17 08:00 Anion Gap 6 (8-16) L 09/01/17 08:00 BUN 21 mg/dL (7-18) H 09/01/17 08:00 Creatinine 0.9 mg/dL (0.7-1.3) 09/01/17 08:00 Creat Clearance w eGFR > 60 (>60) 09/01/17 08:00 Random Glucose 89 mg/dL (74-106) 09/01/17 08:00 Hemoglobin A1c % 4.4 % (4.8-6.0) L 08/27/17 08:44 Calcium 8.8 mg/dL (8.5-10.1) 09/01/17 08:00 Iron 29 ug/dL (38-169) L 08/27/17 12:20 TIBC 257 ug/dL (250-450) 08/27/17 12:20 Iron Saturation 11 % (15-55) L 08/27/17 12:20 Ferritin 360.224 ng/ml (16.4-293.9) H 08/30/17 08:00 Total Bilirubin 0.5 mg/dL (0.2-1.0) 09/01/17 08:00 AST 38 U/L (15-37) H 09/01/17 08:00 ALT 30 U/L (12-78) 09/01/17 08:00 Alkaline Phosphatase 89 U/L (45-117) 09/01/17 08:00 C-Reactive Protein 7.4 MG/DL (0.00-0.3) H 09/01/17 08:00 Total Protein 6.9 g/dl (6.4-8.2) 09/01/17 08:00 Albumin 3.1 g/dl (3.4-5.0) L 09/01/17 08:00 Triglycerides 122 mg/dL (35-160) 08/27/17 12:20 Cholesterol 187 mg/dL (50-200) 08/27/17 12:20 Total LDL Cholesterol 118 mg/dL (5-100) H 08/27/17 12:20 HDL Cholesterol 54 mg/dL (40-60) 08/27/17 12:20 Carcinoembryonic Ag 8.6 ng/mL (0.0-4.7) H 08/30/17 08:00 Vitamin B12 74 pg/ml (180-914) L D 08/27/17 12:20 Serum Folate 18 ng/ml (3.1-17.5) H 08/27/17 12:20 TSH 1.70 uIU/ml (0.358-3.74) 08/27/17 12:20 Free T4 1.31 ng/dl (0.76-1.16) H 08/27/17 12:20 Stool Occult Blood Positive (NEGATIVE) 08/29/17 13:15 Random Vancomycin 14.254 ug/ml 08/30/17 08:00 Problem List - Problems (1) CAD (coronary artery disease) Code(s): I25.10 - ATHSCL HEART DISEASE OF [place] CORONARY ARTERY W/O ANG PCTRS (2) Cellulitis of right foot Code(s): L03.115 - CELLULITIS OF RIGHT LOWER LIMB (3) Occult GI bleeding Code(s): R19.5 - OTHER FECAL ABNORMALITIES (4) Osteomyelitis Code(s): M86.9 - OSTEOMYELITIS, UNSPECIFIED (5) History of colon cancer Code(s): Z85.038 - PERSONAL HISTORY OF MALIGNANT NEOPLASM OF LARGE INTESTINE (6) Elevated CEA Code(s): R97.0 - ELEVATED CARCINOEMBRYONIC ANTIGEN [CEA] Assessment/Plan As discussed with the patient, plan EGD and colonoscopy on . Close monitoring for worsening GI bleeding. Clear liquid diet/bowel prep tomorrow.
[2017-09-01] MEDS ORDERED: PT OWN MED DRAWER 7, Y5N ONE (15:31)
[2017-09-01 16:28] LABS: HEMATOCRIT 25.4 % (35.4-49); HEMOGLOBIN 8.4 GM/dL (11.7-16.9); MEAN PLT VOLUME 9.2 fl (7.5-11.1); PLATELET COUNT 257 K/MM3 (134-434); RBC 2.54 M/mm3 (4.00-5.60); WHITE BLOOD COUNT 7.6 K/mm3 (4.0-10.0)
[2017-09-01] MEDS: VANCOMYCIN 750 MG in DEXTROSE 5%-WATER - 250 ML IVPB SCH (19:06)
[2017-09-01] MEDS: ROSUVASTATIN CA 5 MG TABLET (FP) PO SCH (21:46)
[2017-09-02] MEDS: oxyCODONE HCL 5 MG TABLET PO PRN ×3 (06:06→21:45)
[2017-09-02] MEDS: GABAPENTIN 300 MG CAPSULE (FP) PO SCH ×3 (06:06→21:45)
[2017-09-02 07:38] LABS: HEMATOCRIT 22.7 % (35.4-49); HEMOGLOBIN 7.8 GM/dL (11.7-16.9); MCHC 34.2 g/dl (32.0-35.9); MEAN CELL VOLUME 99.7 fl (80-96); MEAN PLT VOLUME 9.3 fl (7.5-11.1); PLATELET COUNT 230 K/MM3 (134-434); RBC 2.28 M/mm3 (4.00-5.60); RDW 15.5 % (11.9-15.9); WHITE BLOOD COUNT 8.3 K/mm3 (4.0-10.0)
[2017-09-02] MEDS ORDERED: PT OWN MED DRAWER 7, Y5N ONE (09:34)
[2017-09-02] MEDS: MULTIVITAMINS (DAILY MVI) TABLET (FP) PO SCH (09:36)
[2017-09-02] MEDS: traMADol HCL 50 MG TABLET PO PRN (09:36)
[2017-09-02] MEDS: ZINC SULFATE 220 MG CAPSULE (FP) PO SCH ×2 (09:36→21:45)
[2017-09-02] MEDS: CYANOCOBALAMIN (VITAMIN B-12) 1000 MCG/1 ML VIAL IM SCH (09:36)
[2017-09-02] MEDS: ASCORBIC ACID 500 MG TABLET (FP) PO SCH (09:36)
[2017-09-02] MEDS: PANTOPRAZOLE 40 MG TABLET (FP) PO SCH (09:36)
[2017-09-02] MEDS: POLYETHYLENE GLYCOL 3350 119 GM BTL PO SCH (09:37)
[2017-09-02] MEDS: COLLAGENASE CLOSTRIDIUM HIST. 30 GRAMS TUBE TP SCH (09:37)
--- NOTE | 2017-09-02 10:24 | PN ---
Progress Note, Physician History of Present Illness: Infectious Disease Follow up: Patient seen and examined on bedside. On contact ISO for MRSA. Patient states swelling and pain is better today. - Current Medication List Current Medications: Active Medications Acetaminophen (Tylenol -) 650 mg PO Q6H PRN PRN Reason: PAIN LEVEL 1-5 Last Admin: 09/01/17 05:39 Dose: 650 mg Ascorbic Acid (Vitamin C -) 1,000 mg PO DAILY [facility] Last Admin: 09/02/17 09:36 Dose: 1,000 mg Bisacodyl (Dulcolax -) 20 mg PO ONCE ONE Stop: 09/02/17 14:12 Collagenase (Santyl -) 1 applic TP DAILY [facility] Last Admin: 09/02/17 09:37 Dose: 1 applic Cyanocobalamin (Vitamin B12 Injection -) 1,000 mcg IM DAILY [facility] Last Admin: 09/02/17 09:36 Dose: 1,000 mcg Gabapentin (Neurontin -) 300 mg PO TID [facility] Last Admin: 09/02/17 06:06 Dose: 300 mg IV Flush (Picc Line Flush) 8 ml IVPUSH PRN PRN PRN Reason: Protocol Vancomycin HCl 750 mg/ (Dextrose) 250 mls @ 250 mls/hr IVPB DAILY@1700 NE[facility] PRN Reason: Protocol Last Admin: 09/01/17 19:06 Dose: 250 mls/hr Multivitamins/Minerals/Vitamin C (Tab-A-Vit -) 1 tab PO DAILY [facility] Last Admin: 09/02/17 09:36 Dose: 1 tab Oxycodone HCl (Roxicodone -) 10 mg PO Q4H PRN PRN Reason: PAIN LEVEL 6-10 Last Admin: 09/02/17 06:06 Dose: 10 mg Pantoprazole Sodium (Protonix -) 40 mg PO DAILY [facility] Last Admin: 09/02/17 09:36 Dose: 40 mg Polyethylene Glycol (Miralax (For Daily Use) -) 17 gm PO DAILY [facility] Last Admin: 09/02/17 09:37 Dose: Not Given Polyethylene Glycol/Electrolytes (Golytely Solution -) 4,000 ml PO ONCE ONE Stop: 09/02/17 17:01 Rosuvastatin Calcium (Crestor -) 5 mg PO HS [facility] Last Admin: 09/01/17 21:46 Dose: 5 mg Tramadol HCl (Ultram -) 50 mg PO Q8H PRN PRN Reason: PAIN LEVEL 4 - 6 Last Admin: 09/02/17 09:36 Dose: 50 mg Zinc Sulfate (Orazinc -) 220 mg PO BID [facility] Last Admin: 09/02/17 09:36 Dose: 220 mg - Objective Vital Signs: Vital Signs Temperature 99.1 F 09/02/17 06:00 Pulse Rate 99 H 09/02/17 06:00 Respiratory Rate 20 09/02/17 06:00 Blood Pressure 110/59 09/02/17 06:00 O2 Sat by Pulse Oximetry (%) 97 09/01/17 21:00 Constitutional: Yes: Well Nourished, No Distress, Calm HENT: Yes: Atraumatic, Normocephalic Cardiovascular: Yes: Regular Rate and Rhythm, S1, S2. No: JVD, Gallop, Murmur, Rub Respiratory: Yes: Regular, CTA Bilaterally Gastrointestinal: Yes: Normal Bowel Sounds, Soft Extremities: Yes: Other (physical exam unchnaged today. Patient's foot continues to improve) Edema: No Neurological: Yes: Alert, Oriented Psychiatric: Yes: Alert, Oriented Labs: CBC, BMP 09/02/17 06:30 09/01/17 08:00 Assessment/Plan The patient is a 67 yo m w/ PMH PVD who is admitted for the treatment of an infected right foot ulcer. #MRSA Osteomyelitis -erythema and swelling improved today -wound culture growing MRSA -Vancomycin 750mg Daily -c/w Zosyn 3.375mg q8h -MRI shows osteo at multiple sites as well as a collection between the 4th and 5th metatarsals -per Dr. Guzman, no drainage indicated. -patient will require a PICC with a total of 6 weeks of Vancomycin 750mg daily. -patient requires weekly vancomycin levels and labs while on ABX #possible LGIB -patient anemia with heme positive stools. -patient on Iron -repeat FOBT negative -management as per GI -please reconsult as indicated.
[2017-09-02 12:08] LABS: BASO % 0.2 % (0-2.0); EOS % 1.2 % (0-4.5); HEMATOCRIT 21.8 % (35.4-49); HEMOGLOBIN 7.3 GM/dL (11.7-16.9); LYMPH % 12.3 % (8-40); MCH 33.5 pg (25.7-33.7); MCHC 33.6 g/dl (32.0-35.9); MEAN CELL VOLUME 99.7 fl (80-96); MEAN PLT VOLUME 8.6 fl (7.5-11.1); MONO % 10.5 % (3.8-10.2); NEUT % 75.8 % (42.8-82.8); PLATELET COUNT 187 K/MM3 (134-434); RBC 2.18 M/mm3 (4.00-5.60); RDW 14.9 % (11.9-15.9); WHITE BLOOD COUNT 7.9 K/mm3 (4.0-10.0)
--- NOTE | 2017-09-02 12:44 | PN ---
Progress Note, Physician Chief Complaint: patient awake in bed cbc repeat h/h low to get EGD tmr - Current Medication List Current Medications: Active Medications Acetaminophen (Tylenol -) 650 mg PO Q6H PRN PRN Reason: PAIN LEVEL 1-5 Last Admin: 09/01/17 05:39 Dose: 650 mg Ascorbic Acid (Vitamin C -) 1,000 mg PO DAILY [facility] Last Admin: 09/02/17 09:36 Dose: 1,000 mg Bisacodyl (Dulcolax -) 20 mg PO ONCE ONE Stop: 09/02/17 14:12 Collagenase (Santyl -) 1 applic TP DAILY [facility] Last Admin: 09/02/17 09:37 Dose: 1 applic Cyanocobalamin (Vitamin B12 Injection -) 1,000 mcg IM DAILY [facility] Last Admin: 09/02/17 09:36 Dose: 1,000 mcg Gabapentin (Neurontin -) 300 mg PO TID [facility] Last Admin: 09/02/17 06:06 Dose: 300 mg IV Flush (Picc Line Flush) 8 ml IVPUSH PRN PRN PRN Reason: Protocol Vancomycin HCl 750 mg/ (Dextrose) 250 mls @ 250 mls/hr IVPB DAILY@1700 NEHEMIAH PRN Reason: Protocol Last Admin: 09/01/17 19:06 Dose: 250 mls/hr Multivitamins/Minerals/Vitamin C (Tab-A-Vit -) 1 tab PO DAILY [facility] Last Admin: 09/02/17 09:36 Dose: 1 tab Oxycodone HCl (Roxicodone -) 10 mg PO Q4H PRN PRN Reason: PAIN LEVEL 6-10 Last Admin: 09/02/17 06:06 Dose: 10 mg Pantoprazole Sodium (Protonix -) 40 mg PO DAILY [facility] Last Admin: 09/02/17 09:36 Dose: 40 mg Polyethylene Glycol (Miralax (For Daily Use) -) 17 gm PO DAILY [facility] Last Admin: 09/02/17 09:37 Dose: Not Given Polyethylene Glycol/Electrolytes (Golytely Solution -) 4,000 ml PO ONCE ONE Stop: 09/02/17 17:01 Rosuvastatin Calcium (Crestor -) 5 mg PO [facility] Last Admin: 09/01/17 21:46 Dose: 5 mg Tramadol HCl (Ultram -) 50 mg PO Q8H PRN PRN Reason: PAIN LEVEL 4 - 6 Last Admin: 09/02/17 09:36 Dose: 50 mg Zinc Sulfate (Orazinc -) 220 mg PO BID [facility] Last Admin: 09/02/17 09:36 Dose: 220 mg - Objective Vital Signs: Vital Signs Temperature 99.1 F 09/02/17 06:00 Pulse Rate 99 H 09/02/17 06:00 Respiratory Rate 20 09/02/17 06:00 Blood Pressure 110/59 09/02/17 06:00 O2 Sat by Pulse Oximetry (%) 97 09/01/17 21:00 Constitutional: Yes: Calm Neck: Yes: Trachea Midline Cardiovascular: Yes: Regular Rate and Rhythm, Murmur, S1, S2 Respiratory: Yes: CTA Bilaterally Gastrointestinal: Yes: Normal Bowel Sounds, Soft Extremities: Yes: Other (left bka) Wound/Incision: Yes: Other (right foot 4 toe wound) Neurological: Yes: Alert, Oriented Labs: CBC, BMP 09/02/17 11:50 09/01/17 08:00 Problem List - Problems (1) Anemia Assessment/Plan: b12 and iron deficiency b12 injections guaicic positive stools now negative GI saw patient to get EGD tmw clear liquid diet NPO tonight PPI started h/h further droppped to get prbc Code(s): D64.9 - ANEMIA, UNSPECIFIED Qualifiers: Anemia type: B12 deficiency (2) Wound infection Assessment/Plan: abx vanco -mRI noted for osteo of fourth toe picc line will be placed once ready for discharge ID and vascular on board isolation for MRSA Microbiology 08/26/17 12:36 Toe - Right Fourth Gram Stain - Final 08/26/17 12:36 Toe - Right Fourth Wound Culture - Final Mr Sosa Aureus will need fci iv abx dvt ppx zinc sulfate, collagenase Code(s): T14.8XXA - OTHER INJURY OF UNSPECIFIED BODY REGION, INITIAL ENCOUNTER; L08.9 - LOCAL INFECTION OF THE SKIN AND SUBCUTANEOUS TISSUE, UNSP (3) Foot pain Assessment/Plan: pain control and stool softners MRI shows osteo piccl ine to be placed once ready for discharge IV ab vancomycin for MRSA Microbiology 08/26/17 12:36 Toe - Right Fourth Gram Stain - Final 08/26/17 12:36 Toe - Right Fourth Wound Culture - Final S Aureus Code(s): M79.673 - PAIN IN UNSPECIFIED FOOT (4) Hypercholesteremia Assessment/Plan: [facility] Code(s): E78.0 - PURE HYPERCHOLESTEROLEMIA * DO NOT USE *
[2017-09-02] MEDS ORDERED: BISACODYL 5 MG TABLET.DR (FP) PO ONE (14:11)
--- NOTE | 2017-09-02 14:16 | PN ---
Teaching Attending Note Name of Resident: Willy Macedo ATTENDING PHYSICIAN STATEMENT I saw and evaluated the patient. I reviewed the resident's note and discussed the case with the resident. I agree with the resident's findings and plan as documented. SUBJECTIVE: still some foot pain for egd in am OBJECTIVE: Vital Signs Period Temp Pulse Resp BP Sys/Torres Pulse Ox Last 24 Hr 97.2 F-99.1 F 99-113 18-20 110-127/55-75 97 cor-rrr lungs clear abd soft,nt ext dressing intact CBC, BMP 09/02/17 11:50 09/01/17 08:00 vanco trough 10.3 ASSESSMENT AND PLAN: MRSA osteo- d/w Dr Guzman yesterday, no plans for debridement at this time plan 6 weeks iv vancomycin, would continue current dose with f/u trough later this week will need weekly labs and vanco levels please call back if needed Problem List - Problems (1) Wound infection Code(s): T14.8XXA - OTHER INJURY OF UNSPECIFIED BODY REGION, INITIAL ENCOUNTER; L08.9 - LOCAL INFECTION OF THE SKIN AND SUBCUTANEOUS TISSUE, UNSP (2) Osteomyelitis Code(s): M86.9 - OSTEOMYELITIS, UNSPECIFIED (3) Smoking Code(s): F17.200 - NICOTINE DEPENDENCE, UNSPECIFIED, UNCOMPLICATED
[2017-09-02] MEDS: ACETAMINOPHEN 325 MG TABLET (FP) PO PRN ×2 (15:07→21:45)
[2017-09-02] MEDS ORDERED: PEG 3350/NA SULF BICARB CL/KCL 4000 ML SOLN.RECON PO ONE (17:00)
[2017-09-02] MEDS: VANCOMYCIN 750 MG in DEXTROSE 5%-WATER - 250 ML IVPB SCH (17:45)
[2017-09-02] MEDS: ROSUVASTATIN CA 5 MG TABLET (FP) PO SCH (22:42)
[2017-09-03] MEDS: oxyCODONE HCL 5 MG TABLET PO PRN ×3 (03:51→22:55)
[2017-09-03] MEDS: GABAPENTIN 300 MG CAPSULE (FP) PO SCH ×3 (05:26→21:28)
[2017-09-03 07:11] LABS: BASO % 0.4 % (0-2.0); EOS % 2.3 % (0-4.5); HEMATOCRIT 25.9 % (35.4-49); LYMPH % 10.7 % (8-40); MCH 33.3 pg (25.7-33.7); MCHC 34.8 g/dl (32.0-35.9); MEAN CELL VOLUME 95.6 fl (80-96); MEAN PLT VOLUME 9.1 fl (7.5-11.1); MONO % 10.1 % (3.8-10.2); NEUT % 76.5 % (42.8-82.8); PLATELET COUNT 202 K/MM3 (134-434); RBC 2.71 M/mm3 (4.00-5.60); RDW 16.6 % (11.9-15.9); WHITE BLOOD COUNT 8.7 K/mm3 (4.0-10.0)
[2017-09-03 07:17] LABS: INR 1.03 (0.82-1.09); PROTHROMBIN TIME (PATIENT) 11.6 SEC (9.7-13.0)
[2017-09-03 07:29] LABS: ALBUMIN 2.9 g/dl (3.4-5.0); ANION GAP 7 (8-16); BLOOD UREA NITROGEN 16 mg/dL (7-18); CALCIUM 8.5 mg/dL (8.5-10.1); CHLORIDE 108 mmol/L (98-107); CO2 28 mmol/L (21-32); GLUCOSE,RANDOM 80 mg/dL (74-106); POTASSIUM 4.5 mmol/L (3.5-5.1); SODIUM 143 mmol/L (136-145)
[2017-09-03 07:33] LABS: ALK PHOS 87 U/L (45-117); BILIRUBIN,TOTAL 0.6 mg/dL (0.2-1.0); CREATININE 0.9 mg/dL (0.7-1.3); SGOT/AST 38 U/L (15-37); SGPT/ALT 33 U/L (12-78); TOT PROT 6.5 g/dl (6.4-8.2)
[2017-09-03] MEDS: POLYETHYLENE GLYCOL 3350 119 GM BTL PO SCH (09:25)
[2017-09-03] MEDS: MULTIVITAMINS (DAILY MVI) TABLET (FP) PO SCH ×2 (09:26→13:45)
[2017-09-03] MEDS: PANTOPRAZOLE 40 MG TABLET (FP) PO SCH ×2 (09:26→13:44)
[2017-09-03] MEDS: ZINC SULFATE 220 MG CAPSULE (FP) PO SCH ×3 (09:26→21:28)
[2017-09-03] MEDS: ASCORBIC ACID 500 MG TABLET (FP) PO SCH ×2 (09:26→13:44)
[2017-09-03] MEDS ORDERED: PEG 3350/NA SULF BICARB CL/KCL 4000 ML SOLN.RECON PO ONE (11:07)
--- NOTE | 2017-09-03 11:10 | PROC ---
Endoscopy Procedure Endoscopy procedure completed. Please see scanned procedure report. EGD: mild gastritis, biosies taken Colnoscopy: incomplete due to poor prep. Repeat prep today. Colonoscopy tomorrow
--- NOTE | 2017-09-03 12:17 | PN ---
Progress Note, Physician Chief Complaint: Wound infection History of Present Illness: C/O PAIN RIGHT FOOT Patient Name: Eric Santamaria Date: 1950 Address: [address] [place] [address] Sex: Male Rx Written Rx Dispensed Drug Quantity Days Supply Prescriber Name 08/22/2017 08/22/2017 oxycodone-acetaminophen 10-325 mg tab 120 30 Gilbert Guzman S (DO) 04/28/2017 08/20/2017 tramadol hcl 50 mg tablet 60 30 Fernandez, Ishan TURCIOS 07/17/2017 07/18/2017 endocet 5-325 tablet 60 15 Guzman, Gilbert S (DO) 04/28/2017 07/16/2017 tramadol hcl 50 mg tablet 60 30 Fernandez, Ishan TURCIOS 04/28/2017 06/18/2017 tramadol hcl 50 mg tablet 60 30 Fernandez, Ishan TURCIOS 06/13/2017 06/14/2017 endocet 5-325 tablet 20 5 Armand Schaefer () 04/28/2017 04/28/2017 tramadol hcl 50 mg tablet 60 30 Fernandez, Ishan TURCIOS 12/30/2016 03/19/2017 tramadol hcl 50 mg tablet 21 7 Gerald, Alma Delia 12/30/2016 02/17/2017 tramadol hcl 50 mg tablet 21 7 Gerald, Alma Delia 12/30/2016 01/23/2017 tramadol hcl 50 mg tablet 21 7 Gerald, Alma Delia 12/30/2016 12/30/2016 tramadol hcl 50 mg tablet 21 7 Gerald, Alma Delia 08/22/2016 09/03/2016 endocet 5-325 tablet 120 30 Gilbert Guzman S (DO) MRI RLE: Osteomyelitis is identified involving the fourth metatarsal bone and the base of the proximal phalanx of the fourth digit. There is been apparent amputation of the remainder of the fourth digit. Additional possible additional sites of osteomyelitis are noted involving the fifth metatarsal bone and fifth digit fractures versus representing reactive marrow edema). A 2 x 1 x 1 cm fluid structure is seen interposed between the fourth and fifth metatarsal bones/ digits which which could represent an abscess versus a distended intermetatarsal bursa. The mid and distal phalanges of the first, second, third and fifth digits are not well visualized due to persistent motion artifact. There is equivocal marrow edema involving those digits. If clinically indicated correlate with follow-up MRI. Seen by ID IV abx Guaiac positive Seen by GI Went for colonoscopy and endoscopy today Endoscopy-mild gastritis Colonoscopy- poor prep- repeat in AM - Current Medication List Current Medications: Active Medications Acetaminophen (Tylenol -) 650 mg PO Q6H PRN PRN Reason: PAIN LEVEL 1-5 Last Admin: 09/02/17 21:45 Dose: 650 mg Ascorbic Acid (Vitamin C -) 1,000 mg PO DAILY [facility] Last Admin: 09/03/17 09:26 Dose: Not Given Collagenase (Santyl -) 1 applic TP DAILY [facility] Last Admin: 09/02/17 09:37 Dose: 1 applic Cyanocobalamin (Vitamin B12 Injection -) 1,000 mcg IM DAILY [facility] Last Admin: 09/02/17 09:36 Dose: 1,000 mcg Gabapentin (Neurontin -) 300 mg PO TID [facility] Last Admin: 09/03/17 05:26 Dose: Not Given IV Flush (Picc Line Flush) 8 ml IVPUSH PRN PRN PRN Reason: Protocol Vancomycin HCl 750 mg/ (Dextrose) 250 mls @ 250 mls/hr IVPB DAILY@1700 NE[facility] PRN Reason: Protocol Last Admin: 09/02/17 17:45 Dose: 250 mls/hr Multivitamins/Minerals/Vitamin C (Tab-A-Vit -) 1 tab PO DAILY [facility] Last Admin: 09/03/17 09:26 Dose: Not Given Oxycodone HCl (Roxicodone -) 10 mg PO Q4H PRN PRN Reason: PAIN LEVEL 6-10 Last Admin: 09/03/17 08:12 Dose: 10 mg Pantoprazole Sodium (Protonix -) 40 mg PO DAILY [facility] Last Admin: 09/03/17 09:26 Dose: Not Given Polyethylene Glycol (Miralax (For Daily Use) -) 17 gm PO DAILY [facility] Last Admin: 09/03/17 09:25 Dose: Not Given Rosuvastatin Calcium (Crestor -) 5 mg PO HS [facility] Last Admin: 09/02/17 22:42 Dose: 5 mg Tramadol HCl (Ultram -) 50 mg PO Q8H PRN PRN Reason: PAIN LEVEL 4 - 6 Last Admin: 09/02/17 09:36 Dose: 50 mg Zinc Sulfate (Orazinc -) 220 mg PO BID [facility] Last Admin: 09/03/17 09:26 Dose: Not Given - Objective Vital Signs: Vital Signs Temperature 98.5 F 09/03/17 11:11 Pulse Rate 88 09/03/17 11:53 Respiratory Rate 16 09/03/17 11:53 Blood Pressure 122/72 09/03/17 11:53 O2 Sat by Pulse Oximetry (%) 100 09/03/17 11:53 Constitutional: Yes: Well Nourished, No Distress, Calm Cardiovascular: Yes: Regular Rate and Rhythm Respiratory: Yes: Regular Extremities: Yes: Amputation (LLE) Neurological: Yes: Alert, Oriented Psychiatric: Yes: Alert, Oriented Labs: CBC, BMP 09/03/17 06:50 09/03/17 06:50 INR, PTT INR 1.03 (0.82-1.09) 09/03/17 06:50 Problem List - Problems (1) Cellulitis of right foot Assessment/Plan: -ID consult -IV abx -Pain management- HCS checked -tramadol and gabapentin -ESR, CRP trending down -MRI RLE showed osteo: -PICC line Code(s): L03.115 - CELLULITIS OF RIGHT LOWER LIMB (2) Peripheral arterial disease Code(s): I73.9 - PERIPHERAL VASCULAR DISEASE, UNSPECIFIED (3) CAD (coronary artery disease) Assessment/Plan: -statin -asa 81 Code(s): I25.10 - ATHSCL HEART DISEASE OF [place] CORONARY ARTERY W/O ANG PCTRS (4) Anemia Assessment/Plan: -guaiac positive -iron deficiency -GI consult -venofer yesterday -b12 extremely low -daily cyanocobalamin injections -monitor trend with normal transfusion parameters -CEA elevated -Endoscopy-mild gastritis -Repeat Colonoscopy in AM Code(s): D64.9 - ANEMIA, UNSPECIFIED Qualifiers: Anemia type: B12 deficiency (5) Severe malnutrition Assessment/Plan: -promote healing: -add ensure TID -prosource BID -magic cup -Vitamin C 1000 mg po daily -Zinc 250 mg po BID Code(s): E43 - UNSPECIFIED SEVERE PROTEIN-CALORIE MALNUTRITION Assessment/Plan see problem list
[2017-09-03] MEDS: CYANOCOBALAMIN (VITAMIN B-12) 1000 MCG/1 ML VIAL IM SCH (13:43)
[2017-09-03] MEDS: COLLAGENASE CLOSTRIDIUM HIST. 30 GRAMS TUBE TP SCH (15:15)
[2017-09-03] MEDS: traMADol HCL 50 MG TABLET PO PRN (15:43)
[2017-09-03] MEDS: VANCOMYCIN 750 MG in DEXTROSE 5%-WATER - 250 ML IVPB SCH (16:54)
[2017-09-03] MEDS: ROSUVASTATIN CA 5 MG TABLET (FP) PO SCH (21:28)
[2017-09-04] MEDS: oxyCODONE HCL 5 MG TABLET PO PRN ×3 (03:03→23:31)
[2017-09-04] MEDS: GABAPENTIN 300 MG CAPSULE (FP) PO SCH ×3 (06:07→21:50)
[2017-09-04] MEDS ORDERED: PT OWN MED DRAWER 7, Y5N ONE ×3 (09:19→21:15)
[2017-09-04] MEDS: CYANOCOBALAMIN (VITAMIN B-12) 1000 MCG/1 ML VIAL IM SCH ×2 (10:37→10:58)
[2017-09-04] MEDS: ASCORBIC ACID 500 MG TABLET (FP) PO SCH (10:55)
[2017-09-04] MEDS: COLLAGENASE CLOSTRIDIUM HIST. 30 GRAMS TUBE TP SCH (10:57)
[2017-09-04] MEDS: PANTOPRAZOLE 40 MG TABLET (FP) PO SCH (10:57)
[2017-09-04] MEDS: MULTIVITAMINS (DAILY MVI) TABLET (FP) PO SCH (10:57)
[2017-09-04] MEDS: ZINC SULFATE 220 MG CAPSULE (FP) PO SCH ×2 (10:57→21:50)
[2017-09-04] MEDS: POLYETHYLENE GLYCOL 3350 119 GM BTL PO SCH (10:57)
[2017-09-04] MEDS ORDERED: BISACODYL 5 MG TABLET.DR (FP) PO ONE (12:30)
--- NOTE | 2017-09-04 12:58 | PN ---
Progress Note (short form) - Note Progress Note: Drank less than one half of bowel prep. Repeat prep with GoLYTELY and bisacodyl. Colonoscopy tomorrow. Problem List - Problems (1) CAD (coronary artery disease) Code(s): I25.10 - ATHSCL HEART DISEASE OF [place] CORONARY ARTERY W/O ANG PCTRS (2) Cellulitis of right foot Code(s): L03.115 - CELLULITIS OF RIGHT LOWER LIMB (3) Occult GI bleeding Code(s): R19.5 - OTHER FECAL ABNORMALITIES (4) Osteomyelitis Code(s): M86.9 - OSTEOMYELITIS, UNSPECIFIED (5) History of colon cancer Code(s): Z85.038 - PERSONAL HISTORY OF MALIGNANT NEOPLASM OF LARGE INTESTINE (6) Elevated CEA Code(s): R97.0 - ELEVATED CARCINOEMBRYONIC ANTIGEN [CEA]
[2017-09-04] MEDS ORDERED: PEG 3350/NA SULF BICARB CL/KCL 4000 ML SOLN.RECON PO ONE (13:00)
[2017-09-04] MEDS: traMADol HCL 50 MG TABLET PO PRN (13:33)
--- NOTE | 2017-09-04 14:19 | PN ---
Progress Note, Physician Chief Complaint: patient seen and examined to get colonscopy tmw - Current Medication List Current Medications: Active Medications Acetaminophen (Tylenol -) 650 mg PO Q6H PRN PRN Reason: PAIN LEVEL 1-5 Last Admin: 09/02/17 21:45 Dose: 650 mg Ascorbic Acid (Vitamin C -) 1,000 mg PO DAILY [facility] Last Admin: 09/04/17 10:55 Dose: 1,000 mg Collagenase (Santyl -) 1 applic TP DAILY [facility] Last Admin: 09/04/17 10:57 Dose: 1 applic Cyanocobalamin (Vitamin B12 Injection -) 1,000 mcg IM DAILY [facility] Last Admin: 09/03/17 13:43 Dose: 1,000 mcg Gabapentin (Neurontin -) 300 mg PO TID [facility] Last Admin: 09/04/17 13:33 Dose: 300 mg IV Flush (Picc Line Flush) 8 ml IVPUSH PRN PRN PRN Reason: Protocol Vancomycin HCl 750 mg/ (Dextrose) 250 mls @ 250 mls/hr IVPB DAILY@1700 [facility] PRN Reason: Protocol Last Admin: 09/03/17 16:54 Dose: 250 mls/hr Multivitamins/Minerals/Vitamin C (Tab-A-Vit -) 1 tab PO DAILY [facility] Last Admin: 09/04/17 10:57 Dose: 1 tab Oxycodone HCl (Roxicodone -) 10 mg PO Q4H PRN PRN Reason: PAIN LEVEL 6-10 Last Admin: 09/04/17 10:58 Dose: 10 mg Pantoprazole Sodium (Protonix -) 40 mg PO DAILY [facility] Last Admin: 09/04/17 10:57 Dose: 40 mg Polyethylene Glycol (Miralax (For Daily Use) -) 17 gm PO DAILY [facility] Last Admin: 09/04/17 10:57 Dose: Not Given Rosuvastatin Calcium (Crestor -) 5 mg PO HS [facility] Last Admin: 09/03/17 21:28 Dose: 5 mg Tramadol HCl (Ultram -) 50 mg PO Q8H PRN PRN Reason: PAIN LEVEL 4 - 6 Last Admin: 09/04/17 13:33 Dose: 50 mg Zinc Sulfate (Orazinc -) 220 mg PO BID [facility] Last Admin: 09/04/17 10:57 Dose: 220 mg - Objective Vital Signs: Vital Signs Temperature 98.5 F 09/04/17 06:00 Pulse Rate 102 H 09/04/17 06:00 Respiratory Rate 20 09/04/17 09:00 Blood Pressure 146/77 09/04/17 06:00 O2 Sat by Pulse Oximetry (%) 98 09/04/17 09:00 Constitutional: Yes: Calm, Thin Neck: Yes: Trachea Midline Cardiovascular: Yes: Regular Rate and Rhythm, S1, S2 Respiratory: Yes: CTA Bilaterally Gastrointestinal: Yes: Normal Bowel Sounds, Soft Extremities: Yes: Other (right foot wound left amputation) Neurological: Yes: Alert, Oriented Labs: CBC, BMP 09/03/17 06:50 09/03/17 06:50 INR, PTT INR 1.03 (0.82-1.09) 09/03/17 06:50 Problem List - Problems (1) Anemia Assessment/Plan: s/p prbc h/h improved to get colonoscopy with complete bowel prep- tmw EGD - mild gastritis Code(s): D64.9 - ANEMIA, UNSPECIFIED Qualifiers: Anemia type: B12 deficiency (2) Wound infection Assessment/Plan: abx vanco -mRI noted for osteo of fourth toe picc line will be placed once ready for discharge- iv vancomcycin ID and vascular on board isolation for MRSA Microbiology 08/26/17 12:36 Toe - Right Fourth Gram Stain - Final 08/26/17 12:36 Toe - Right Fourth Wound Culture - Final Mr Sosa Aureus will need rat exterminator iv abx dvt ppx zinc sulfate, collagenase Code(s): T14.8XXA - OTHER INJURY OF UNSPECIFIED BODY REGION, INITIAL ENCOUNTER; L08.9 - LOCAL INFECTION OF THE SKIN AND SUBCUTANEOUS TISSUE, UNSP (3) Foot pain Assessment/Plan: pain control and stool softners MRI shows osteo piccl ine to be placed once ready for discharge IV ab vancomycin for MRSA Microbiology 08/26/17 12:36 Toe - Right Fourth Gram Stain - Final 08/26/17 12:36 Toe - Right Fourth Wound Culture - Final S Aureus Code(s): M79.673 - PAIN IN UNSPECIFIED FOOT (4) Hypercholesteremia Assessment/Plan: crestor Code(s): E78.0 - PURE HYPERCHOLESTEROLEMIA * DO NOT USE * Assessment/Plan colonoscopy tmw
--- NOTE | 2017-09-04 14:34 | PATH ---
Surgical Pathology Report Patient Name: MISSY FERNANDEZ [facility]. Rec. #: [id number] /Age/Gender: 1950 (Age: 67) / M Account: [id number] Location: [address] [place] [address] Taken: 09/03/2017 Received: 09/03/2017 Reported: 09/04/2017 Physicians: Cain Lopez M.D. Specimen(s) Received A: BX SECOND PORTION DUODENUM B: BX ANTRUM AND BODY Clinical History GI bleed Postoperative diagnosis: Gastritis, poor prep Final Diagnosis A. DUODENUM, SECOND PORTION, BIOPSY: DUODENAL MUCOSA WITHOUT SIGNIFICANT PATHOLOGIC FINDINGS. B. STOMACH, ANTRUM/BODY, BIOPSY: GASTRIC ANTRAL AND BODY MUCOSA WITH MILD CHRONIC GASTRITIS. IMMUNOHISTOCHEMICAL STAIN FOR H. PYLORI IS NEGATIVE. Electronically Signed Yadi Fonseca M.D. Gross Description A. Received in formalin, labeled "biopsy second portion of duodenum" are 2 mahoney, irregular portions of soft tissue measuring 0.3 and 0.7 cm. in greatest dimension. The specimens are submitted in toto in one cassette. B. Received in formalin, labeled "biopsy antrum/body" are 3 mahoney, irregular portions of soft tissue ranging from 0.1-0.7 cm. in greatest dimension. The specimens are submitted in toto in one cassette. /09/03/2017 [facility]/09/03/2017
[2017-09-04] MEDS: amLODIPine BESYLATE 10 MG TABLET (FP) PO SCH (15:50)
[2017-09-04] MEDS: VANCOMYCIN 750 MG in DEXTROSE 5%-WATER - 250 ML IVPB SCH (16:46)
[2017-09-04] MEDS: ACETAMINOPHEN 325 MG TABLET (FP) PO PRN (16:49)
[2017-09-04] MEDS: ROSUVASTATIN CA 5 MG TABLET (FP) PO SCH (21:50)
[2017-09-05] MEDS: oxyCODONE HCL 5 MG TABLET PO PRN ×2 (04:38→14:57)
[2017-09-05] MEDS: GABAPENTIN 300 MG CAPSULE (FP) PO SCH ×2 (06:40→14:11)
[2017-09-05] MEDS: ASCORBIC ACID 500 MG TABLET (FP) PO SCH (09:34)
[2017-09-05] MEDS: ZINC SULFATE 220 MG CAPSULE (FP) PO SCH (09:35)
[2017-09-05] MEDS: MULTIVITAMINS (DAILY MVI) TABLET (FP) PO SCH (09:35)
[2017-09-05] MEDS: amLODIPine BESYLATE 10 MG TABLET (FP) PO SCH (09:35)
[2017-09-05] MEDS: CYANOCOBALAMIN (VITAMIN B-12) 1000 MCG/1 ML VIAL IM SCH (09:35)
[2017-09-05] MEDS: PANTOPRAZOLE 40 MG TABLET (FP) PO SCH (09:35)
[2017-09-05] MEDS: POLYETHYLENE GLYCOL 3350 119 GM BTL PO SCH (09:46)
--- NOTE | 2017-09-05 09:51 | PN ---
Progress Note, Physician Chief Complaint: blood work ordered NPO for colonscopy bowel prep done - Current Medication List Current Medications: Active Medications Acetaminophen (Tylenol -) 650 mg PO Q6H PRN PRN Reason: PAIN LEVEL 1-5 Last Admin: 09/04/17 16:49 Dose: 650 mg Amlodipine Besylate (Norvasc -) 10 mg PO DAILY [facility] Last Admin: 09/04/17 15:50 Dose: 10 mg Ascorbic Acid (Vitamin C -) 1,000 mg PO DAILY [facility] Last Admin: 09/04/17 10:55 Dose: 1,000 mg Collagenase (Santyl -) 1 applic TP DAILY [facility] Last Admin: 09/04/17 10:57 Dose: 1 applic Cyanocobalamin (Vitamin B12 Injection -) 1,000 mcg IM DAILY [facility] Last Admin: 09/04/17 10:37 Dose: Not Given Gabapentin (Neurontin -) 300 mg PO TID [facility] Last Admin: 09/05/17 06:40 Dose: 300 mg IV Flush (Picc Line Flush) 8 ml IVPUSH PRN PRN PRN Reason: Protocol Vancomycin HCl 750 mg/ (Dextrose) 250 mls @ 250 mls/hr IVPB DAILY@1700 NEHEMIAH PRN Reason: Protocol Last Admin: 09/04/17 16:46 Dose: 250 mls/hr Multivitamins/Minerals/Vitamin C (Tab-A-Vit -) 1 tab PO DAILY [facility] Last Admin: 09/04/17 10:57 Dose: 1 tab Oxycodone HCl (Roxicodone -) 10 mg PO Q4H PRN PRN Reason: PAIN LEVEL 6-10 Last Admin: 09/05/17 04:38 Dose: 10 mg Pantoprazole Sodium (Protonix -) 40 mg PO DAILY [facility] Last Admin: 09/04/17 10:57 Dose: 40 mg Polyethylene Glycol (Miralax (For Daily Use) -) 17 gm PO DAILY [facility] Last Admin: 09/04/17 10:57 Dose: Not Given Rosuvastatin Calcium (Crestor -) 5 mg PO HS [facility] Last Admin: 09/04/17 21:50 Dose: 5 mg Tramadol HCl (Ultram -) 50 mg PO Q8H PRN PRN Reason: PAIN LEVEL 4 - 6 Last Admin: 09/04/17 13:33 Dose: 50 mg Zinc Sulfate (Orazinc -) 220 mg PO BID [facility] Last Admin: 09/04/17 21:50 Dose: 220 mg - Objective Vital Signs: Vital Signs Temperature 99.4 F 09/05/17 06:00 Pulse Rate 106 H 09/05/17 06:00 Respiratory Rate 20 09/05/17 06:00 Blood Pressure 124/61 09/05/17 06:00 O2 Sat by Pulse Oximetry (%) 97 09/04/17 21:00 Constitutional: Yes: Calm, Thin Cardiovascular: Yes: Regular Rate and Rhythm, Murmur, S1, S2 Respiratory: Yes: CTA Bilaterally Gastrointestinal: Yes: Normal Bowel Sounds, Soft Extremities: Yes: Other (left BKA right foot wound 4 toe) Neurological: Yes: Alert, Oriented Labs: CBC, BMP 09/03/17 06:50 09/03/17 06:50 INR, PTT INR 1.03 (0.82-1.09) 09/03/17 06:50 Problem List - Problems (1) Anemia Assessment/Plan: labs ordered today to get colonoscopy today EGD - mild gastritis Code(s): D64.9 - ANEMIA, UNSPECIFIED Qualifiers: Anemia type: B12 deficiency (2) Wound infection Assessment/Plan: abx vanco -mRI noted for osteo of fourth toe picc line will be placed once ready for discharge- iv vancomcycin ID and vascular on board isolation for MRSA Microbiology 08/26/17 12:36 Toe - Right Fourth Gram Stain - Final 08/26/17 12:36 Toe - Right Fourth Wound Culture - Final Mr Sosa Aureus will need long-term iv abx- 6 week of vancomycin with weekly labs dvt ppx zinc sulfate, collagenase Code(s): T14.8XXA - OTHER INJURY OF UNSPECIFIED BODY REGION, INITIAL ENCOUNTER; L08.9 - LOCAL INFECTION OF THE SKIN AND SUBCUTANEOUS TISSUE, UNSP (3) Foot pain Assessment/Plan: pain control and stool softeners MRI shows osteo picc line to be placed once ready for discharge IV ab vancomycin for MRSA- isolation for MRSA Microbiology 08/26/17 12:36 Toe - Right Fourth Gram Stain - Final 08/26/17 12:36 Toe - Right Fourth Wound Culture - Final S Aureus Code(s): M79.673 - PAIN IN UNSPECIFIED FOOT (4) Hypercholesteremia Assessment/Plan: crestor Code(s): E78.0 - PURE HYPERCHOLESTEROLEMIA * DO NOT USE * Assessment/Plan colonscopy today then picc line placement needs 5 weeks of vancomycin 750mg iv daily and weekly lab work- at [facility]
[2017-09-05] MEDS: COLLAGENASE CLOSTRIDIUM HIST. 30 GRAMS TUBE TP SCH (10:08)
--- NOTE | 2017-09-05 10:25 | DS ---
Physical Examination Vital Signs: Vital Signs Temperature 99.4 F 09/05/17 06:00 Pulse Rate 106 H 09/05/17 06:00 Respiratory Rate 20 09/05/17 06:00 Blood Pressure 124/61 09/05/17 06:00 O2 Sat by Pulse Oximetry (%) 97 09/04/17 21:00 Constitutional: Yes: Calm, Thin Cardiovascular: Yes: Regular Rate and Rhythm, Murmur, S1, S2 Gastrointestinal: Yes: Normal Bowel Sounds, Soft Extremities: Yes: Other (left BKa right foot fourth toe wound) Edema: No Neurological: Yes: Alert, Oriented Labs: CBC, BMP 09/03/17 06:50 09/03/17 06:50 Discharge Summary Reason For Visit: LOCAL INFECTION OF WOUND Current Active Problems CAD (coronary artery disease) (Acute) Cellulitis of right foot (Acute) Elevated CEA (Acute) Occult GI bleeding (Acute) Osteomyelitis (Acute) Severe malnutrition (Acute) Smoking (Acute) Wound infection (Acute) Other Procedures: MRI of lower extremity _ osteo of forth toe right foot. EGD chronic gastritis, H pylori negative Hospital Course: PCP: Ambrosio Mills - Admission Chief Complaint: SENT FROM WOUND CARE History of Present Illness: Patient is a 67-year-old male past medical history of vascular disease, who presents emergency department today from wound care. Patient states that the base of his right fourth toe is infected and he has pain to the surrounding foot. He states he has had pain to the foot for three weeks. The fourth toe is amputated. Denies fevers, chills, shortness of breath, difficulty breathing, chest pain, palpitations, nausea, vomiting, diarrhea, frequency, urgency and hematuria. History Source: Medical Record - Past Medical History Cardiovascular: Yes: Hyperlipdemia. No: AFIB, Aneurysm, Aortic Insufficiency, Aortic Stenosis, CAD, CHF, Deep Vein Thrombosis, HTN, [place], Mitral Insufficiency, Mitral Stenosis, Murmur, Pulmonary Hypertension, Other Gastrointestinal: Yes: Cancer (colon), GI Bleed. No: Ascites, Constipation, Crohn's Disease, Diverticulitis, Diverticulosis, Esophageal Varices, Gastritis, GERD, Hemorrhoids, Hiatal Hernia, Inflamatory Bowel Disease, Irritable Bowel Disease, Pancreatitis, Peptic Ulcer Disease, Ulcerative Colitis, Other Heme/Onc: Yes: Cancer (colon), Sickle Cell Trait. No: Anemia, B12 Deficiency, Bleeding Disorder, Current Chemotherapy, Current Radiation Therapy, Hemochromatosis, Hypercoaguable State, Myeloproliferative Synd, Sickle Cell Disease, Thrombocytopenia, Other - Smoking History Smoking history: Current some day smoker Have you smoked in the past 12 months: Yes Aproximately how many cigarettes per day: 3 hospital course: seen by ID and vascular: iv abx for osteo- vancomycin anemia got prbc - egd done now to get colonscopy Condition: Stable - Instructions Diet, Activity, Other Instructions: vancomcyin 750mg iv daily for 5 weeks weekly cbc,cmp, check vancomycin trough -- Referrals: Ishan Fernandez [Primary Care Provider] - [facility] - Home Medications Comprehensive Discharge Medication List: Ambulatory Orders Albuterol Sulfate [Proair Hfa -] 1 puff IH Q4H PRN 04/25/15 Folic Acid 1 mg PO DAILY 05/23/17 Tramadol HCl 50 mg PO PRN PRN 05/23/17 Clopidogrel Bisulfate [Plavix] 75 mg PO DAILY #30 tablet 05/29/17 Collagenase Clostridium Hist. [Santyl] 1 applic TP DAILY #1 oint...g. 06/18/17 Albuterol 0.083% Nebulizer Ni [Ventolin 0.083% Nebulizer Soln -] 1 amp NEB PRN 07/30/17 Becaplermin [Regranex] 15 gm TP DAILY #1 gel..gram. 08/22/17 Oxycodone HCl/Acetaminophen [Percocet 10-325 mg Tablet] 1 each PO QID #120 tablet MDD 4 08/22/17
--- NOTE | 2017-09-05 12:02 | PROC ---
Endoscopy Procedure Endoscopy procedure completed. Please see scanned procedure report. Normal-appearing anastomosis was found in the right colon. Mild, nonbleeding pandiverticulosis grade 2 internal hemorrhoids, uncomplicated. Resume previous diet. Avoid hard stool, constipation.
--- NOTE | 2017-09-05 13:14 | PN ---
Progress Note (short form) - Note Progress Note: Upper endoscopy pathology report reviewed. Avoid NSAIDs if possible. Continue small dose PPI daily for 4 weeks. Please reconsult GI as needed. Problem List - Problems (1) CAD (coronary artery disease) Code(s): I25.10 - ATHSCL HEART DISEASE OF [place] CORONARY ARTERY W/O ANG PCTRS (2) Cellulitis of right foot Code(s): L03.115 - CELLULITIS OF RIGHT LOWER LIMB (3) Occult GI bleeding Code(s): R19.5 - OTHER FECAL ABNORMALITIES (4) Osteomyelitis Code(s): M86.9 - OSTEOMYELITIS, UNSPECIFIED (5) History of colon cancer Code(s): Z85.038 - PERSONAL HISTORY OF MALIGNANT NEOPLASM OF LARGE INTESTINE (6) Elevated CEA Code(s): R97.0 - ELEVATED CARCINOEMBRYONIC ANTIGEN [CEA]
[2017-09-05 14:33] VITALS: BP 124/63; PULSE 86; TEMP 98.2
[2017-09-05 14:53] LABS: BASO % 0.3 % (0-2.0); EOS % 0.2 % (0-4.5); HEMATOCRIT 31.4 % (35.4-49); HEMOGLOBIN 10.5 GM/dL (11.7-16.9); LYMPH % 7.4 % (8-40); MCH 32.6 pg (25.7-33.7); MCHC 33.4 g/dl (32.0-35.9); MEAN CELL VOLUME 97.9 fl (80-96); MEAN PLT VOLUME 8.8 fl (7.5-11.1); MONO % 8.1 % (3.8-10.2); PLATELET COUNT 267 K/MM3 (134-434); RBC 3.21 M/mm3 (4.00-5.60); RDW 15.7 % (11.9-15.9); WHITE BLOOD COUNT 14.3 K/mm3 (4.0-10.0)
[2017-09-05 15:08] LABS: CHLORIDE 101 mmol/L (98-107); POTASSIUM 4.1 mmol/L (3.5-5.1); SODIUM 139 mmol/L (136-145)
[2017-09-05 15:13] LABS: ALBUMIN 2.8 g/dl (3.4-5.0); ALK PHOS 89 U/L (45-117); ANION GAP 7 (8-16); BILIRUBIN,TOTAL 0.6 mg/dL (0.2-1.0); BLOOD UREA NITROGEN 11 mg/dL (7-18); CALCIUM 8.7 mg/dL (8.5-10.1); CO2 31 mmol/L (21-32); GLUCOSE,RANDOM 83 mg/dL (74-106); SGOT/AST 28 U/L (15-37); SGPT/ALT 27 U/L (12-78); TOT PROT 7.1 g/dl (6.4-8.2)
[2017-09-05] MEDS: VANCOMYCIN 750 MG in DEXTROSE 5%-WATER - 250 ML IVPB SCH (17:09)
== END 2017-09-05 17:12 | DRG 862 ==
LOC: JER 10:33 → JERBED 14:31 → J6S 17:00 → J5S 08-27 13:25
PROVIDERS: ADMIT Family Medicine; ATTEND Family Medicine
PROC: 0DD98ZX Extraction of Duodenum, Via Natural or Artificial Opening Endoscopic, Diagnostic (ICD-10-PCS; 2017-09-03)
PROC: 0DD68ZX Extraction of Stomach, Via Natural or Artificial Opening Endoscopic, Diagnostic (ICD-10-PCS; 2017-09-03)
PROC: 0DJD8ZZ Inspection of Lower Intestinal Tract, Via Natural or Artificial Opening Endoscopic (ICD-10-PCS; 2017-09-03)
PROC: 0DJD8ZZ Inspection of Lower Intestinal Tract, Via Natural or Artificial Opening Endoscopic (ICD-10-PCS; 2017-09-05)
PROC: 02HV33Z Insertion of Infusion Device into Superior Vena Cava, Percutaneous Approach (ICD-10-PCS; principal; 2017-09-05 10:30)
DX: T81.4XXA Infection following a procedure, initial encounter (principal); E43 Unspecified severe protein-calorie malnutrition; Z68.1 Body mass index [BMI] 19.9 or less, adult; L03.115 Cellulitis of right lower limb; R64 Cachexia; L97.518 Non-pressure chronic ulcer of other part of right foot with other specified severity; M86.8X7 Other osteomyelitis, ankle and foot; K29.80 Duodenitis without bleeding; D50.9 Iron deficiency anemia, unspecified; I25.10 Atherosclerotic heart disease of native coronary artery without angina pectoris; B95.62 Methicillin resistant Staphylococcus aureus infection as the cause of diseases classified elsewhere; R97.0 Elevated carcinoembryonic antigen [CEA]; M79.673 Pain in unspecified foot; K57.90 Diverticulosis of intestine, part unspecified, without perforation or abscess without bleeding; K29.70 Gastritis, unspecified, without bleeding; F17.210 Nicotine dependence, cigarettes, uncomplicated; R19.5 Other fecal abnormalities; K64.1 Second degree hemorrhoids; I73.89 Other specified peripheral vascular diseases; E78.00 Pure hypercholesterolemia, unspecified; Z89.421 Acquired absence of other right toe(s); Z85.038 Personal history of other malignant neoplasm of large intestine; Z89.612 Acquired absence of left leg above knee; Y83.9 Surgical procedure, unspecified as the cause of abnormal reaction of the patient, or of later complication, without mention of misadventure at the time of the procedure
CPT/HCPCS: 36415; 36430; 36569; 71045-TC-FY; 73630-TC-RT-FY; 73718-TC; 77001-TC-FY; 80053; 80061; 82272; 82378; 82607; 82728; 82746; 83036; 83540; 83550; 83721; 84439; 84443; 85025; 85027; 85610; 85651; 86140; 86850; 86900; 86901; 86922; 87040; 87070; 87186; 87205; 88305-TC; 93005; 93010; 97116-GP; 97161-GP; 99284-25; C1751; G0480; J1644; J1756; P9038; P9058

== ENCOUNTER 2018-03-26 10:02 | Day surgery (SDC) | payer OTHER ==
[2018-03-25 13:39] VITALS: BMI 15.7
[2018-03-26] MEDS ORDERED: LIDOCAINE HCL 1%, 10 MG/ML (20ML VIAL) ONE (11:28)
[2018-03-26] MEDS ORDERED: MIDAZOLAM HCL 2 MG/2 ML SINGLE DOSE VIAL ONE (12:18)
[2018-03-26] MEDS ORDERED: PROPOFOL 20 ML ONE (12:18)
[2018-03-26] MEDS ORDERED: HEPARIN NA (PORCINE) 5,000 UNITS/ML 1ML VIAL ONE (12:36)
[2018-03-26] MEDS ORDERED: ceFAZolin SODIUM 1 GM VIAL IVPB ONE (12:42)
[2018-03-26] MEDS ORDERED: ceFAZolin SODIUM 1 GM VIAL ONE (13:04)
[2018-03-26] MEDS ORDERED: LIDOCAINE HCL 1%, 10 MG/ML (50 mL VIAL) IJ ONE (13:23)
[2018-03-26] MEDS ORDERED: PROMETHAZINE HCL 25 MG/1 ML VIAL IVPB PRN (13:35)
[2018-03-26] MEDS ORDERED: ONDANSETRON 4 MG/2 ML VIAL IVPUSH PRN (13:35)
--- NOTE | 2018-03-26 13:41 | OP ---
Operative Note - Note: Operative Date: 03/26/18 Pre-Operative Diagnosis: Right foot nonhealing wound. Operation: CO2 Aortogram, RLE CO2 Angiogram Findings: RLE Stents patent Post-Operative Diagnosis: Same as Pre-op Surgeon: Gilbert Guzman Anesthesia: Fractional Estimated Blood Loss (mls): 30 Operative Report Dictated: Yes
--- NOTE | 2018-03-26 13:43 | HP ---
Admitting History and Physical - Admission Chief Complaint: non healing amputation site right foot Limitations to Obtaining History: No Limitations - Past Medical History Cardiovascular: Yes: Hyperlipdemia. No: AFIB, Aneurysm, Aortic Insufficiency, Aortic Stenosis, CAD, CHF, Deep Vein Thrombosis, HTN, [place], Mitral Insufficiency, Mitral Stenosis, Murmur, Pulmonary Hypertension, Other Gastrointestinal: Yes: Cancer (colon), GI Bleed. No: Ascites, Constipation, Crohn's Disease, Diverticulitis, Diverticulosis, Esophageal Varices, Gastritis, GERD, Hemorrhoids, Hiatal Hernia, Inflamatory Bowel Disease, Irritable Bowel Disease, Pancreatitis, Peptic Ulcer Disease, Ulcerative Colitis, Other Heme/Onc: Yes: Cancer (colon), Sickle Cell Trait. 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 History of Recent Travel: No Home Medications - Allergies Allergies/Adverse Reactions: Allergies Allergy/AdvReac Type Severity Reaction Status Date / Time No Known Allergies Allergy Verified 08/26/17 10:37 - Home Medications Home Medications: Ambulatory Orders Albuterol Sulfate [Proair Hfa -] 1 puff IH Q4H PRN 04/25/15 Folic Acid 1 mg PO DAILY 05/23/17 Gabapentin [Neurontin -] 300 mg PO TID capsule 09/05/17 Multivitamins [Multivit (RH Formulary)] 1 tab PO DAILY tab 09/05/17 Oxycodone HCl/Acetaminophen [Percocet 10-325 mg Tablet] 1 each PO QID PRN #120 tablet MDD 4 09/05/17 Pantoprazole Sodium [Protonix -] 40 mg PO DAILY tablet.ec 09/05/17 Polyethylene Glycol 3350 [Miralax 119 gm Btl -] 17 gm PO DAILY bottle 09/05/17 traMADol HCL [Ultram -] 50 mg PO Q8H PRN #20 tablet MDD 3 09/05/17 Lidocaine 5% Top. Ointment [Xylocaine 5% Top. Ointment -] 1 applic TP DAILY #1 tube 10/27/17 Cyanocobalamin [Vitamin B12 -] 100 mcg PO DAILY 03/25/18 Vitamin E 400 unit PO DAILY 03/25/18 Family Disease History - Family Disease History Family Disease History: Other: Father (Sickle Cell Trait) Review of Systems - Review of Systems Constitutional: reports: No Symptoms Eyes: reports: No Symptoms HENT: reports: No Symptoms Neck: reports: No Symptoms Cardiovascular: reports: No Symptoms Respiratory: reports: No Symptoms Gastrointestinal: reports: No Symptoms Genitourinary: reports: No Symptoms Musculoskeletal: reports: No Symptoms Integumentary: reports: No Symptoms Neurological: reports: No Symptoms Endocrine: reports: No Symptoms Hematology/Lymphatic: reports: No Symptoms Psychiatric: reports: No Symptoms Physical Examination Vital Signs: Vital Signs Temperature 97.6 F 03/26/18 10:48 Pulse Rate 64 03/26/18 10:48 Respiratory Rate 18 03/26/18 10:48 Blood Pressure 117/71 03/26/18 10:48 O2 Sat by Pulse Oximetry (%) 100 03/26/18 10:48 Constitutional: Yes: Well Nourished, No Distress, Calm Eyes: Yes: WNL, Conjunctiva Clear, EOM Intact HENT: Yes: WNL, Atraumatic, Normocephalic Neck: Yes: WNL, Supple, Trachea Midline Cardiovascular: Yes: WNL, Regular Rate and Rhythm Respiratory: Yes: WNL, Regular, CTA Bilaterally Gastrointestinal: Yes: WNL, Normal Bowel Sounds Musculoskeletal: Yes: WNL Extremities: Yes: WNL, Other (non healing amp site right foot) Edema: No Peripheral Pulses WNL: No Integumentary: Yes: WNL Neurological: Yes: WNL, Alert, Oriented ...Motor Strength: WNL Psychiatric: Yes: WNL Problem List - Problems (1) Non-healing amputation site Assessment/Plan: For RLE angiogram today via CO2 Code(s): T87.89 - OTHER COMPLICATIONS OF AMPUTATION STUMP
[2018-03-26] MEDS ORDERED: LACTATED RINGERS SOLUTION 1,000 ML IV SCH (13:45)
[2018-03-26] MEDS ORDERED: ACETAMINOPHEN 1000 MG/100 ML VIAL (NON FORMULARY) IVPB ONE (17:00)
[2018-03-26] MEDS ORDERED: ACETAMINOPHEN INJECTION 100 ML IVPB ONE (17:03)
[2018-03-26] MEDS ORDERED: oxyCODONE HCL 5 MG TABLET ONE (18:02)
[2018-03-26 18:35] VITALS: TEMP 97.9
[2018-03-26 18:37] VITALS: BP 112/66; PULSE 83
--- NOTE | 2018-04-17 23:46 | OP ---
DATE OF OPERATION: 03/26/2018 PREOPERATIVE DIAGNOSIS: Right foot nonhealing wound. POSTOPERATIVE DIAGNOSIS: Right foot nonhealing wound. PROCEDURE: Carbon dioxide aortogram, right lower extremity carbon dioxide angiogram. FINDINGS: Right lower extremity stents patent. SURGEON: Gilbert Guaman DO ANESTHESIA: Fractional. BLOOD LOSS: 30 mL. INDICATIONS: The patient is a 68-year-old male who comes in with a right foot nonhealing amputation site and it was decided that he would need a diagnostic CO2 angiogram to make sure that the stents in his right lower extremity are patent. Patient came in to ambulatory surgery. Patient was consented for the procedure, understanding all risks, benefits, and alternatives. DESCRIPTION OF PROCEDURE: He was then taken to the operating room and placed on the operating table in the supine manner. The left and right groin were prepped and draped in the sterile surgical manner. We then injected lidocaine 1% over the left common femoral artery. We then went ahead and took our micropuncture needle and punctured the left common femoral artery. A micropuncture wire was inserted and a micropuncture sheath was inserted. A 0.38 floppy guidewire was inserted up to the aorta. We then followed with a 5-Slovenian sheath. We then went ahead and placed an Omni Flush catheter up into the aorta. We then shot a CO2 aortogram showing that the aorta and the arteries are without any disease. We then used a 0.038 stiff guidewire and we went up and over to the right common femoral artery. We then went ahead and the Omni Flush catheter followed. We then went ahead and shot a CO2 angiogram of the right lower extremity showing that the common femoral artery, the profunda, and the SFA were patent. The stents in the SFA were patent. Popliteal artery was patent. The patient has one-vessel runoff, which is peroneal and going down to the ankle and then coming off branches to the AT and PT. At this point, looking at the images, there was no intervention needed. All stents were patent. We brought our Omni Flush catheter up and over. We removed our 5-Slovenian sheath from the left groin. Pressure was held for 5 minutes. After this there was no bleeding. The area was cleaned and dried. Dermabond was placed. Patient tolerated the procedure with no complication. Patient was transferred back in stable condition. Total blood loss was 30 mL. GILBERT GUAMAN DO [id number]
== END 2018-03-26 18:45 | disposition home or self-care (01) ==
LOC: JASU-SURG 10:02
PROVIDERS: ATTEND Surgery Vascular Surgery
PROC: B41DZZZ Fluoroscopy of Aorta and Bilateral Lower Extremity Arteries (ICD-10-PCS; principal; 2018-03-26 11:30)
DX: E11.621 Type 2 diabetes mellitus with foot ulcer (principal); L97.519 Non-pressure chronic ulcer of other part of right foot with unspecified severity; Z98.890 Other specified postprocedural states; Z89.421 Acquired absence of other right toe(s)
CPT/HCPCS: 76000-TC-FY; 82962; 94760; J0131; J1644